=== PATIENT | female | born 1935 | race Caucasian/White ===

== ENCOUNTER 2022-08-20 09:37 | Outpatient (OUT) | payer MEDICARE, OTHER, SELFPAY ==
[2022-08-20 11:19] LABS: Anion Gap 14.9; BUN Creatinine Ratio 32.4; Calcium 9.5 mg/dL (8.5-10.1); Carbon Dioxide 26.7 mmol/L (21.0-32.0); Chloride 102 mmol/L (98-107); Estimated GFR (African America 44 (>=60); Estimated GFR (Non-African Ame 36 (>=60); Glucose 78 mg/dL (74-106); Potassium 3.6 mmol/L (3.5-5.1); Sodium 140 mmol/L (136-145)
[2022-08-20 11:22] LABS: Estimated Average Glucose 174 mg/dL; Glycohemoglobin A1C 7.7 % (4.5-6.2)
== END 2022-08-20 09:38 ==
LOC: LAB 09:43
PROVIDERS: PCP Family Medicine; Visit Provider Family Medicine
DX: E11.22 Type 2 diabetes mellitus with diabetic chronic kidney disease (principal); I12.9 Hypertensive chronic kidney disease with stage 1 through stage 4 chronic kidney disease, or unspecified chronic kidney disease; N18.32 Chronic kidney disease, stage 3b
CPT/HCPCS: 36415; 80048; 83036

== ENCOUNTER 2023-07-07 10:40 | Outpatient (OUT) | payer MEDICARE, OTHER, SELFPAY ==
--- NOTE | 2023-07-07 11:02 | XR_ITS ---
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 FINDINGS: BONES: Moderate degenerative facet arthropathy L3-L4 through L5-S1. No fracture. Minimal grade 1 anterolisthesis of L3 on 4. DISC SPACES: Marked narrowing L4-L5. Moderate marked narrowing L5-S1. Mild narrowing L3-L4. 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 OTHER: Negative. XR/XR lumbar spine 2-3V IMPRESSION: 1. Marked degenerative changes of lumbar spine. No appreciable acute abnormality. Electronically authenticated by: TRACEY GRANT Date: 07/08/2023 06:39
== END 2023-07-07 10:41 | disposition home or self-care (01) ==
LOC: RAD 10:43
PROVIDERS: PCP Family Medicine; Visit Provider Nurse Practitioner Family
DX: M53.86 Other specified dorsopathies, lumbar region (principal); M51.36 Other intervertebral disc degeneration, lumbar region
CPT/HCPCS: 72100

== ENCOUNTER 2024-12-29 12:12 | Outpatient (OUT) | payer MEDICARE, OTHER, SELFPAY ==
--- OUTSIDE RECORDS SUMMARY | 2024-12-29 12:18 | XMS_ITS | Clinical Summary ---
Author Organization [facility] Address [address] [place] [address] Care Team Providers Care Director Of Rehabilitation And Wellness Name Role Phone Unavailable Primary Care Provider Unavailabl e Social History Tobacco UseTypesPacks/DayYears UsedDateSmoking Tobacco: Never Assessed CommentsUnknownSex and Gender InformationValueDate RecordedSex Assigned at Not on fileLegal RwtDpnjwm69/15/2023 7:19 PM EDTGender IdentityNot on fileSexual OrientationNot on file Plan of Treatment Not on file
--- NOTE | 2024-12-29 12:20 | XR_ITS ---
[address] [address] Patient Name: SAMEER CASTANEDA MRN: [id number] date: 1935 Sex: F Assigned Patient Location: [facility] Current Patient Location: [facility] Accession/Order Number: [id number] Exam Date: 12/29/2024 12:30 Report Date: 12/29/2024 21:52 At the request of: LAINE SALCEDO Procedure: XR hip LT 2V w/ pelvis Single view pelvis and 2 views of the left hip INDICATION: Strain of left hip, no known injury COMPARISON: None FINDINGS: Brki-yj-ynrmksuv degenerative changes left hip. Mild to moderate degenerative changes both sacroiliac joints. No diastases of the sacroiliac joints or the pubic symphysis. Presumed pelvic phleboliths. Soft tissues unremarkable. XR/XR hip LT 2V w/ pelvis IMPRESSION: Czyt-jr-yfrhetpk degenerative change. Negative acute osseous abnormalities. Impression dictated by: Jamir Sifuentes M.D. 12/29/2024 9:52 PM Dictation Location: [place] [address] Electronically authenticated by: [id number] Y Date: 12/29/2024 21:52
--- OUTSIDE RECORDS SUMMARY | 2024-12-29 12:20 | XMS_ITS | CCD ---
Author Organization [facility] InformFormerly [facility] Care Team Providers Care Surveillance Dual Rate Officer Name Role Phone DENISSE, DR CHAD Donohue Admitting Unavailable FURLONG, DR CHAD Donohue Attending Unavailable FURLONG, DR CHAD Donohue Primary Care Unavailable FURLONG, DR CHAD Donohue Consulting Unavailable Furlong Chad JONES Primary Care Provider CHAD SOMERS Referring Unavailable FURLONG, CHAD Donohue Primary Care Unavailable FURLONG, CHAD Donohue Referring Unavailable FURLONG, CHAD Donohue Primary Care Unavailable FURLONG, CHAD Donohue Referring Unavailable FURLONG, CHAD Donohue Primary Care Unavailable Furlong Chad JONES Primary Care Provider Stacialong Chad JONES Primary Care Provider CAESARNGCHAD Attending Unavailable FURLONG, CHAD Donohue Referring Unavailable FURLONG, CHAD Donohue Primary Care Unavailable FURLONG, CHAD Donohue Attending Unavailable FURLONG, CHAD Donohue Referring Unavailable FURLONG, CHAD Donohue Primary Care Unavailable FURLONG, CHAD Donohue Attending Unavailable FURLONG, CHAD Donohue Referring Unavailable FURLONG, CHAD Donohue Primary Care Unavailable JONATHAN MACIAS Attending Unavailable FURLONG, CHAD Donohue Referring Unavailable FURLONG, CHAD Donohue Primary Care Unavailable FURLONG, CHAD Donohue Attending Unavailable FURLONG, CHAD Donohue Referring Unavailable FURLONG, CHAD Donohue Primary Care Unavailable Allergies Allergy ClassificationReported Allergen(s)Allergy TypeDate of OnsetReaction(s) Facility (20 sources)iodine povacrylex / Isopropyl Alcohol; Translations: [IODINE POVACRY-ISO ALCOHOL]Drug Ajqgrbh96-16-0224SlpswOydUpslxu [facility] (20 sources)Penicillin G; Translations: [PENICILLIN G]Drug Dcabkpq45-57-0016 [facility] Medications Current Medications MedicationDrug Class(es)DatesSig (Normalized)Sig (Original)amLODIPine 10 mg oral tablet (20 sources)Dihydropyridine Calcium Channel BlockerStart: 82-18-3676qcdp 1 tablet by mouth once dailyamLODIPine (NORVASC) 10 mg tablet Indications: Essential (primary) hypertension TAKE 1 TABLET BY MOUTH DAILY 90 tablet 1 08/09/2024 ActiveStart: 05-23-2024 End: 15-73-7273fhzb 0.5 tablet by mouth once daily in the morningamLODIPine (NORVASC) 10 mg tablet Indications: Essential (primary) hypertension Take 0.5 tablets (5mg total) by mouth every morning. 05/23/2024 08/09/2024 Discontinued Start: 03-05-2023 End: 92-45-8778khqi 1 tablet by mouth once dailyamLODIPine (NORVASC) 10 mg tablet Indications: Essential (primary) hypertension TAKE 1 TABLET BY MOUTH DAILY 30 tablet 3 04/12/2024 05/23/2024 DiscontinuedStart: 05-14-2022 End: 75-41-7184clRDXQCrdt (NORVASC) 10 mg tablet Indications: Essential (primary) hypertension 0.5 tabs once a day30 tablet 5 05/14/2022 03/05/2023 Discontinuedaspirin 81 mg delayed release oral tablet (20 sources)Platelet Aggregation Inhibitor, Nonsteroidal Anti-inflammatory Drug take 1 tablet by mouth in the morningaspirin 81 mg Take 1 tablet (81 mg total) by mouth in the morning. Activeatorvastatin 80 mg oral tablet (20 sources)HMG-CoA Reductase InhibitorStart: 04-20-2022 End: 79-09-5596qgkz 1 tablet by mouth once dailyatorvastatin (LIPITOR) 80 mg tablet Indications: Hyperlipidemia, unspecified TAKE 1 TABLET BY MOUTHDAILY 90 tablet 3 04/12/2024 Activebenazepril hydrochloride 40 mg oral tablet (20 sources)Angiotensin Converting Enzyme InhibitorStart: 05-14-2022 End: 06-68-2059qsnh 1 tablet by mouth once daily in the morningbenazepriL (LOTENSIN) 40 MG tablet Indications: 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 ([facility]) TAKE 1 TABLET BY MOUTH ONCE DAILY IN THE DTQOTDH48 tablet 5 12/01/2024 Activecalcium carbonate 1500 mg / cholecalciferol 0.01 mg oral capsule (20 sources)Vitamin Dcalcium carbonate-vitamin D3 600 mg-10 mcg (400 unit) capsule Activecalcium carbonate-vitamin D3 600 mg-10 mcg (400 unit) capsule Calcium 600 with Vitamin D3 600 mg-10mcg (400 unit) capsule Take by oral route. Activecelecoxib 200 mg oral capsule (1 source)Nonsteroidal Anti-inflammatory DrugStart: 07-06-2023 End: 93-86-0811catd 1 capsule by mouth in the morningcelecoxib (CeleBREX) 200 mg capsule Take 1 capsule (200 mg total) by mouth in the morning for 14 days. 14 capsule 07/06/2023 07/20/2023 Activedapagliflozin 10 mg oral tablet (20 sources)Sodium-Glucose Cotransporter 2 InhibitorStart: 01-06-2023 End: 93-23-8550juli 1 tablet by mouth once daily in the morningFARXIGA 10 mg tablet Indications: Type 2 diabetes mellitus with diabetic chronic kidney disease (CMS-HCC) TAKE 1 TABLET BY MOUTH ONCE DAILY IN THE MORNING 30 tablet 5 12/01/2024 Activefurosemide 40 mg oral tablet (20 sources)Loop DiureticStart: 04-11-2024 End: 57-13-4249tdbt 1 tablet by mouth once dailyfurosemide (LASIX) 40 mg tablet TAKE 1 TABLET BY MOUTH ONCE DAILY 30 tablet 5 12/01/2024 ActiveStart: 02-01-2023 End: 52-66-1255xwwy 1 tablet by mouth once daily in the morningfurosemide (LASIX) 20 mg tablet Indications: Localized edema Take 1 tablet (20 mg total) by mouth every morning. 30 tablet 5 11/11/2023 ActivehydroCHLOROthiazide 25 mg oral tablet (20 sources)Thiazide DiureticStart: 09-14-2022 End: 79-43-8275vgrx 1 tablet by mouth once dailyhydroCHLOROthiazide (HYDRODIURIL) 25 mg tablet Indications: Essential (primary) hypertension TAKE 1 TABLET BY MOUTH DAILY 30 tablet 5 09/07/2024 Active3 ml insulin glargine 100 unt/ml pen injector (20 sources)Insulin AnalogStart: 08-09-2024 End: 73-36-9405vhqdrnp glargine (LANTUS SOLOSTAR U-100 INSULIN) 100 unit/mL (3 mL) insulin pen Inject 40 Units under the skin nightly. 15 mL 3 09/28/2024 ActiveStart: 10-22-2023 End: 59-15-6344jaktncc glargine (LANTUS SOLOSTAR U-100 INSULIN) 100 unit/mL (3 mL) insulin pen Inject 26 Units under the skin nightly. 10/22/2023 08/09/2024 DiscontinuedStart: 10-21-2023 End: 46-01-7532ibrsgnm glargine (LANTUS SOLOSTAR U-100 INSULIN) 100 unit/mL (3 mL) insulin pen Inject 32 Units under the skin nightly. 10/21/2023 10/22/2023 DiscontinuedStart: 12-22-2022 End: 54-54-6544xqgypcw glargine (LANTUS SOLOSTAR U-100 INSULIN) 100 unit/mL (3 mL) insulin pen Inject 40 Units under the skin nightly. 15 mL 5 10/06/2023 10/21/2023 Discontinuedloratadine 10 mg oral tablet (9 sources)Start: 49-55-3281fvby 1 tablet by mouth once daily as needed loratadine (CLARITIN) 10 mg tablet Indications: Allergic rhinitis, unspecified seasonality, unspecified trigger Take 1 tablet (10 mg total) by mouth daily as needed for allergies. 30 tablet 2 08/18/2024 ActivemetFORMIN hydrochloride 500 mg oral tablet (20 sources)BiguanideStart: 11-12-2022 End: 75-23-0527aqpg 1 tablet by mouth once dailymetFORMIN (GLUCOPHAGE) 500 mg tablet Indications: Type 2 diabetes mellitus with diabetic chronic kidney disease ([facility]) TAKE 1 TABLET BY MOUTH DAILY 90 tablet 3 11/03/2024 Active nitrofurantoin, macrocrystals 25 mg / nitrofurantoin, monohydrate 75 mg oral capsule (1 source)Nitrofuran AntibacterialStart: 08-18-2024 End: 66-75-9050ngzn 1 capsule by mouth in the morning, then take 1 capsule by mouth at bedtimenitrofurantoin, macrocrystal-monohydrate, (MACROBID) 100 mg capsule Take 1 capsule (100 mg total) by mouth in the morning and 1 capsule (100 mg total) before bedtime. Do all this for 3 days. 6 capsule 08/18/2024 08/21/2024 Activemicroencapsulated potassium chloride 20 meq extended release oral tablet (20 sources)Start: 32-80-3335ojkn 1 tablet by mouth in the morningpotassium chloride (KLOR-CON M 20) 20 MEQ CR tablet TAKE 1 TABLET BY MOUTH IN THE MORNING 30 tablet5 12/01/2024 ActiveStart: 05-24-2024 End: 82-84-3216qfch 1 tablet by mouth in the morningpotassium chloride (KLOR-CON M 20) 20 MEQ CR tablet Take 1 tablet (20 mEq total) by mouth in the morning. 30 tablet 5 05/24/2024 12/01/2024 DiscontinuedStart: 09-03-2022 End: 61-24-0492eqyvsphsy chloride (K-TAB,KLOR-CON) 10 MEQ CR tablet Indications: Hypokalemia TAKE 1 TABLET BY MOUTH EVERY MORNING 90 tablet 1 02/08/2024 05/24/2024 Discontinued (Dose adjustment) Completed/Discontinued Medications MedicationDrug Class(es)DatesSig (Normalized)Sig (Original)atenolol 100 mg oral tablet (4 sources)beta-Adrenergic Mary Jane End: 10-84-8668pwkg 1 tablet by mouth in the morningatenolol (TENORMIN) 100 mg tablet Take 1 tablet (100 mg total) by mouth in the morning. 0 04/17/2023 Discontinued (Therapy completed)finerenone (KERENDIA) 10 mg tablet (8 sources)Start: 04-17-2023 End: 18-81-3864thfg 1 tablet by mouth in the morningfinerenone (KERENDIA) 10 mg tablet Indications: Type 2 diabetes mellitus with stage 3b chronic kidney disease, with long-term current use of insulin ([facility]) Take 10 mg by mouth in the morning. 30 tablet 5 04/17/2023 07/06/2023 Discontinued (Cost of medication) Start: 25-98-8180cexp 1 tablet by mouth in the morningfinerenone (KERENDIA) 10 mg tablet Indications: Type 2 diabetes mellitus with stage 3b chronic kidney disease, with long-term current use of insulin (CMS-HCC) Take 10 mg by mouth in the morning. 30 tablet 5 04/17/2023 ActiveStart: 05-16-2022 End: 65-78-0915yzpr 1 tablet by mouth in the morningfinerenone (KERENDIA) 10 mg tablet Indications: Type 2 diabetes mellitus with stage 3b chronic kidney disease, with long-term current use of insulin (CMS-HCC) Take 10 mg by mouth in the morning. 30 tablet 5 05/16/2022 04/17/2023 Discontinued (Reorder)Start: 00-81-2961sdim 1 tablet by mouth in the morningfinerenone (KERENDIA) 10 mg tablet Indications: Type 2 diabetes mellitus with stage 3b chronic kidney disease, with long-term current use of insulin (CMS-HCC) Take 10 mg by mouth in the morning. 30 tablet 5 05/16/2022 Active Problems Active Problems Problem ClassificationProblemDateDocumented DateEpisodic/ChronicCataract (20 sources)Cataract; Translations: [Unspecified cataract]Onset: 01-27-2022 95-70-9850SmpsbbcIwbjzvz kidney disease (20 sources)Chronic kidney disease stage 3; Translations: [Stage 3 chronic kidney disease]Onset: 474737-93-6019OdxqyccLrtgfjo kidney disease (3 sources)Chronic kidney disease; Translations: [CHRONIC KIDNEY DISEASE STAGE 3B]Onset: 38-15-6810Zawercti mellitus with complications (20 sources)Type 2 diabetes mellitus with diabetic chronic kidney disease; Translations: [Hypertension in chronic kidney disease stage 3 due to type 2 diabetes mellitus]Onset: 29-47-8057PlzoomhQavpfcgh mellitus without complication (20 sources)Type 2 diabetes mellitus; Translations: [Type 2 diabetes mellitus without complications]Onset: 404991-15-5277QnutdntNfvdsfsmz of lipid metabolism (20 sources)Mixed hyperlipidemia; Translations: [Hyperlipidemia]Onset: 663537-56-7270GoicobyClimsrdma hypertension (20 sources)Essential hypertension; Translations: [Essential (primary) hypertension]Onset: 816819-26-2449YloyfflXvbkucvpvypi with complications and secondary hypertension (20 sources)Hypertensive chronic kidney disease with stage 1 through stage 4 chronic kidney disease, or unspecified chronic kidney disease; Translations: [Chronic kidney disease due to hypertension]Onset: hronic Immunizations and screening for infectious disease (2 sources)Needs influenza immunization; Translations: [Encounter for immunization]Onset: 098361-24-8978LufobheyMyevk disorders and dislocations; trauma-related (20 sources)Derangement of meniscus; Translations: [Other meniscus derangements, unspecified meniscus, unspecified knee]Onset: hronic Osteoarthritis (20 sources)Osteoarthritis; Translations: [Unspecified osteoarthritis, unspecified site]Onset: 533927-87-6161CzgovvaJavef nutritional; endocrine; and metabolic disorders (4 sources)Overweight; Translations: [Overweight]Onset: EpisodicOther upper respiratory disease (20 sources)Seasonal allergic rhinitis; Translations: [Other seasonal allergic rhinitis]Onset: 143625-83-7289XfgnywkAwpbr upper respiratory disease (1 source)Allergic rhinitis; Translations: [Allergic rhinitis, unspecified] 95-56-5460BpnliwjYxvsdktd codes; unclassified (2 sources)Edema of foot; Translations: [Localized edema]16-55-5200Pxeyxpce Unclassified (2 sources)Strain of muscle of abt43-51-4070Pfgizyziqmre (1 source)sinus concernsOnset: 90-19-8468Fhcmifm tract infections (1 source)Urinary tract infectious disease; Translations: [Urinary tract infection, site not specified]85-11-3280Mmzamjvi Past or Other Problems Problem ClassificationProblemDateDocumented DateEpisodic/ChronicFluid and electrolyte disorders (20 sources)Hypokalemia; Translations: [Hypokalemia]Onset: EpisodicGenitourinary symptoms and ill-defined conditions (2 sources)Dysuria; Translations: [Dysuria]Onset: 733921-55-9206Mshnvqyw Malignant neoplasm without specification of site (20 sources)Malignant adenomatous neoplasm; Translations: [Malignant (primary) neoplasm, unspecified]Onset: 03-06-2008 Resolved: 355309-02-5026CajzxboCpfk disorders (20 sources)Mood disordersOnset: 10-21-2023 Resolved: Other aftercare (2 sources)alf (current) use of insulin; Translations: [MCC CURRENT USE OF INSULIN]Onset: 55-64-4040QsozxavgOysqr bone disease and musculoskeletal deformities (20 sources)Osteopenia; Translations: [Other specified disorders of bone density and structure, unspecified site]Onset: 655702-49-2851GvcxowqiXkeqe non- traumatic joint disorders (1 source)Hip painOnset: 62-35-3057DaekamymOrhua nutritional; endocrine; and metabolic disorders (20 sources)Obesity caused by energy imbalance; Translations: [Class 1 obesity due to excess calories with serious comorbidity and body mass index (BMI) of 30.0 to 30.9 in adult]Onset: 04-17-2023 Resolved: 713127-94-0394WirohzfAfqlw nutritional; endocrine; and metabolic disorders (1 source)Overweight; Translations: [Overweight]Onset: 30-25-4174Wilkodnp Regional enteritis and ulcerative colitis (20 sources)Terminal ileitis; Translations: [Crohn's disease of small intestine without complications]Onset: 01-27-2022 Resolved: 776431-80-2193XhpslsaMakvwblm codes; unclassified (20 sources)Edema; Translations: [Edema, unspecified]Onset: EpisodicResidual codes; unclassified (3 sources)Localized edema; Translations: [Localized edema]52-45-6309Afkohcqi Residual codes; unclassified (1 source)Localized edema; Translations: [Localized edema]Onset: 04-11-2024 EpisodicScreening and history of mental health and substance abuse codes (1 source)Patient encounter status; Translations: [Encounter for screening for depression]01-82-8112CbbymqhhBawubtmcolr; intervertebral disc disorders; other back problems (1 source)Sciatica; Translations: [Other specified dorsopathies, lumbar region] 11-59-3128WtpanptoOcirfcc and strains (5 sources)Strain of muscle of lower limb; Translations: [Strain of muscle of hip]Onset: 213355-94-9358OarvxousDaurvtkxwvet (20 sources)Onset: 04-17-2023 Resolved: 701427-24-0696 Results Test NameValueInterpretationReference RangeFacilityCOMPREHENSIVE METABOLIC PANEL on 49-45-9771Dcqbyyn [Mass/Vol]4.4 g/dLNormal3.2-5.3PRiverview [facility] Institute Ambulatory PPGComment on above:Performed By: #### CMP #### [facility] ([facility]) [address] [place] [address] VIRALP [Catalytic activity/Vol]118 U/TDkdsbg97-558MtdSaowom Hospital Ambulatory PPGComment on above:Performed By: #### CMP #### [facility] ([facility]) [address] [place] [address] VIRALT [Catalytic activity/Vol]20 U/LNormal<=31PRiverview Health Institute Ambulatory PPGComment on above:Performed By: #### CMP #### [facility] ([facility]) [address] [place] [address] VIRAnion gap [Moles/Vol]12 mmol/LNormal5-15[facility] Ambulatory PPGComment on above:Performed By: #### CMP #### [facility] ([facility]) [address] [place] [address] VIRAST [Catalytic activity/Vol]21 U/LNormal<=41[facility] Ambulatory PPGComment on above:Performed By: #### CMP #### [facility] ([facility]) [address] [place] [address] VIRBilirubin [Mass/Vol]0.9 mg/dLNormal0.3-1.2PRiverview Health Institute Ambulatory PPGComment on above:Performed By: #### CMP #### [facility] ([facility]) [address] [place] [address] VIRCalcium [Mass/Vol]10.1 mg/dLNormal8.5-10.5PRiverview Health Institute Ambulatory PPGComment on above:Performed By: #### CMP #### [facility] ([facility]) [address] [place] [address] VIRChloride [Moles/Vol]98 mmol/TOrfwdr11-471HnrGmhgsr Hospital Ambulatory PPGComment on above:Performed By: #### CMP #### [facility] ([facility]) [address] [place] [address] VIRCO2 [Moles/Vol]28 mmol/YTntiyx69-45UbgNzbefm Hospital Ambulatory PPGComment on above:Performed By: #### CMP #### [facility] ([facility]) [address] [place] [address] VIRCreatinine [Mass/Vol]1.51 mg/dLHigh0.40-1.00[facility] Ambulatory PPGComment on above:Result Comment: METHOD TRACEABLE TO IDMS STANDARDPerformed By: #### CMP #### [facility] ([facility]) [address] [place] [address] VIRGFR/1.73 sq M.predicted among non-blacks MDRD (S/P/Bld) [Vol rate/Area]33 mL/min/{1.73_m2}Low>=60[facility] Ambulatory PPGComment on above:Result Comment: Reported eGFR is based on the CKD-EPI 1 equation that does not use a race coefficient.Performed By: #### CMP #### [facility] ([facility]) [address] [place] [address] VIRGlucose [Mass/Vol]81 mg/zESqoijy88-40AkpFiynim Hospital Ambulatory PPGComment on above:Performed By: #### CMP #### [facility] ([facility]) [address] [place] [address] VIRPotassium [Moles/Vol]3.7 mmol/LNormal3.5-5.0[facility] Ambulatory PPGComment on above:Performed By: #### CMP #### [facility] ([facility]) [address] [place] [address] VIRProtein [Mass/Vol]7.5 g/dLNormal6.0-8.0[facility] Ambulatory PPGComment on above:Performed By: #### CMP #### [facility] ([facility]) [address] [place] [address] VIRSodium [Moles/Vol]138 mmol/EVvfzwo272-839VvxKuuoxp Hospital Ambulatory PPGComment on above:Performed By: #### CMP #### [facility] ([facility]) [address] [place] [address] VIRUrea nitrogen [Mass/Vol]63 mg/dLHigh5-27[facility] Ambulatory PPGComment on above:Performed By: #### CMP #### [facility] ([facility]) [address] [place] [address] VIRHEMOGLOBIN A1Con 82-65-4933Gkjldtk [Mass/Vol]180 mg/dLNormal [facility] Ambulatory PPGComment on above:Performed By: #### HA1C #### [facility] ([facility]) [address] [place] [address] WXZUzO4l (Bld) [Mass fraction]7.9 %High4.4-5.6[facility] Ambulatory PPGComment on above:Result Comment: ADA Guidelines Result HgbA1c Normal : less than 5.7 % Prediabetes : 5.7 % to 6.4 % Diabetes : > 6.4 % Use with caution in patients with abnormal hemoglobin variants as the half-life of red blood cells and in vivo glycation rates are affected.Performed By: #### HA1C #### [facility] ([facility]) [address] [place] [address] VIRLIPID PROFILEon 48-13-3974Fqzqriibjck [Mass/Vol]113 mg/dLLow 150-200[facility] Ambulatory PPGComment on above:Performed By: #### LIPR #### [facility] ([facility]) [address] [place] [address] VIRCholesterol in HDL [Mass/Vol]46 mg/dLNormal>39ProFirelands Regional [facility] Ambulatory PPGComment on above:Result Comment: HDL <40 mg/dL - High Risk HDL > or = 40mg/dL- Desirable HDL >60 mg/dL - Negative RiskPerformed By: #### LIPR #### [facility] ([facility]) [address] [place] [address] VIRCholesterol in LDL [Mass/Vol]50 mg/dLNormal<130[facility] Ambulatory PPGComment on above:Result Comment: LDL <100 mg/dL - Desirable LDL >160 mg/dL - High RiskPerformed By: #### LIPR #### [facility] ([facility]) [address] [place] [address] VIRCHOLESTEROL:HDL2.4Nnqvgr6.0-5.0[facility] Ambulatory PPGComment on above:Performed By: #### LIPR #### [facility] ([facility]) [address] [place] [address] VIRTriglyceride [Mass/Vol]86 mg/yCYqxkdy63-654RopQdgoqm Hospital Ambulatory PPGComment on above:Performed By: #### LIPR #### [facility] ([facility]) [address] [place] [address] VIRVERY LOW LIKDPOSKJDV10 mg/dLNormal0-30[facility] Ambulatory PPGComment on above:Performed By: #### LIPR #### [facility] ([facility]) [address] [place] [address] VIRMICROALBUMIN / CREATININE URINE RATIOon 57-85-0592Tpfcszj DL <= 20 mg/L (U) [Mass/Vol]mg/dLNormal0.0-1.9[facility] Ambulatory PPG Comment on above:Performed By: #### MALBU #### [facility] ([facility]) [address] [place] [address] VIRMALB/CREAT RATIONormalCrystal Clinic [facility] Ambulatory PPG Comment on above:Result Comment: Urine Microalbumin / Creatinine ratio not calculated due to non-numeric component.Performed By: #### MADDIE #### [facility] ([facility]) [address] [place] [address] VIRURINE CREATININE,RDM24.50 mg/dLSherman Oaks [facility] Ambulatory PPGComment on above:Performed By: #### MADDIE #### [facility] ([facility]) [address] [place] [address] VIRPOCT Hemoglobin A1con 05-17-3868XrE9v (Bld) [Mass fraction] 8.1 %Abnormal4 - 7 %[facility] OhioInterpretation and review of laboratory resultsAbWills Eye HospitalPOCT urinalysis dipstick onlyOrdered By: Iona Zelaya on 31-37-4900Eefvcdcctv (U) clearProSuburban [facility] SystemExternal Poct Urine BilirubinNegativeC[facility] SystemExternal Poct Urine BloodNegativeC[facility] SystemExternal Poct Urine ColoryellowSelect [facility] [place]External Poct Urine Glucose2+ [facility] OhioComment on above:250External Poct Urine KetonesNegative [facility] SystemExternal Poct Urine Leukocyte EsteraseTracePGreene Memorial Hospital SystemExternal Poct Urine NitriteNegativeSelect [facility] [place]External Poct Urine Qe4IurDnsnmfCleveland Clinic Luther[facility] Hospital SystemExternal Poct Urine ProteinNegative [facility] [place]External Poct Urine Specific Gravity1.01[facility] [place]External Poct Urine Urobilinogen0.2PCommunity Health SystemsBASIC METABOLIC PANLon 03-47-5537Anqxt gap [Moles/Vol]14 mmol/LNormal5-15 [facility] HospitalComment on above:Performed By: #### BMP #### [facility] ([id number]) [address], [address] [place], [place] [address]Gubfilp [Mass/Vol]10.9 mg/dLHigh8.5-10.5PMercy Health Clermont HospitalComment on above:Performed By: #### BMP #### [facility] ([id number]) [address], [address] [place], [place] [address]Nnaqodhc [Moles/Vol]93 mmol/NFpe21-049AafJvwofsCleveland Clinic Lutheran Hospital Comment on above:Performed By: #### BMP #### [facility] ([id number]) [address], [address] [place], [place] [address]OR0 [Moles/Vol]29 mmol/KXybgym90-66SvzWgwucx [facility] Comment on above:Performed By: #### BMP #### [facility] ([id number]) [address], [address] [place], [place] [address]Bogqsvkoci [Mass/Vol]1.61 mg/dLHigh0.40-1.00ProWilson [address] HospitalComment on above:Result Comment: METHOD TRACEABLE TO IDMS STANDARD Performed By: #### BMP #### [facility] ([id number]) [address], [address] [place], [place] [address]OOR/1.73 sq M.predicted among non-blacks MDRD (S/P/Bld) [Vol rate/Area]31 mL/min/{1.73_m2}Low>59Pro[address] HospitalComment on above: Result Comment: Reported eGFR is based on the CKD-EPI 1 equation that does not use a race coefficient.Performed By: #### BMP #### [facility] ([id number]) [address], [address] [place], [place] [address]Uqgpgqs [Mass/Vol]113 mg/dQAgdp06-42LktHc[address]Wilson [address] Hospital Comment on above:Performed By: #### BMP #### [facility] ([id number]) [address], [address] [place], [place] [address]Rlqkdqkry [Moles/Vol]3.3 mmol/LLow3.5-5.0Pro[address] HospitalComment on above:Performed By: #### BMP #### [facility] ([id number]) [address], [address] [place], [place] [address]Aypkhs [Moles/Vol]136 mmol/UFczfqv425-692LqfFlqrvi [place] HospitalComment on above:Performed By: #### BMP #### [facility] ([id number]) [address], [address] [place], [place] [address]Ygux nitrogen [Mass/Vol]56 mg/dLHigh5-27ProWilson [address] HospitalComment on above:Performed By: #### BMP #### [facility] ([id number]) [address] [place], [place] [address]Bowlb Metabolic Panelon 65-36-0521Gakbe gap [Moles/Vol]14 mmol/L 5 - 15 mmol/[facility] SystemCalcium [Mass/Vol]10.9 mg/dLHigh8.5 - 10.5 mg/dLCleveland Clinic Lutheran Hospital SystemChloride [Moles/Vol]93 mmol/LLow98 - 109 mmol/L [facility] SystemCO2 [Moles/Vol]29 mmol/L22 - 32 mmol/[facility] SystemCreatinine [Mass/Vol]1.61 mg/dLHigh0.40 - 1.00 mg/dLSelect Medical Specialty Hospital - Southeast OhioComment on above:METHOD TRACEABLE TO IDLA STANDARDeGFR (CKD-EPI)non-race lvdxkrsyx61Hoh[address] [place], [place] [address]Comment on above: Reported eGFR is based on the CKD-EPI 2020 equation that does not use a race coefficient. Glucose [Mass/Vol]113 mg/qMUcyk82 - 99 mg/dLSelect Medical Specialty Hospital - [facility] [place] Interpretation and review of laboratory resultsAbnormalCleveland Clinic Lutheran Hospital System Potassium [Moles/Vol]3.3 mmol/LLow3.5 - 5.0 mmol/LProMedica Health SystemSodium [Moles/Vol]136 mmol/L134 - 146 mmol/[facility] SystemUrea nitrogen [Mass/Vol]56 mg/dLHigh5 - 27 mg/dLEncompass Health Rehabilitation [facility] COMPREHENSIVE METABOLIC PANELon 56-69-0437Xnwyjyf [Mass/Vol]4.5 g/dLNormal 3.2-5.3ProMedica Rosenthal HospitalComment on above:Performed By: ###Dorian SAENZ CMP, 3016-3 #### [facility] ([id number]) [address], [address] [place], [place] [address]LQS [Catalytic activity/Vol]129 U/VFangps62-137AliZezmja Rosenthal HospitalComment on above:Performed By: ###Dorian SAENZ CMP, 6-3 #### [facility] ([id number]) [address], [address] [place], [place] [address]TBH [Catalytic activity/Vol]18 U/LNormal0-31ProMedica Rosenthal HospitalComment on above:Performed By: ###Dorian SAENZ CMP, 6-3 #### [facility] ([id number]) [address], [address] [place], [place] [address]Xdpnl gap [Moles/Vol]11 mmol/LNormal5-15ProMedica Rosenthal HospitalComment on above:Performed By: #### THONG SAENZ, 6-3 #### [facility] ([id number]) [address], [address] [place], [place] [address]CIF [Catalytic activity/Vol]22 U/LNormal0-41ProMedica Rosenthal HospitalComment on above:Performed By: ###Dorian SAENZ CMP, 6-3 #### [facility] ([id number]) [address], [address] [place], [place] [address]Zszgjgcou [Mass/Vol]1.1 mg/dLNormal0.3-1.2ProMedica Rosenthal HospitalComment on above:Performed By: #### THONG SAENZ, 6-3 #### [facility] ([id number]) [address], [address] [place], [place] [address]Pawmijl [Mass/Vol]10.3 mg/dLNormal8.5-10.5ProMedica Rosenthal HospitalComment on above:Performed By: #### THONG SAENZ, 3016-3 #### [facility] ([id number]) [address], [address] [place], [place] [address]Kgdhixes [Moles/Vol]97 mmol/TPdi50-823QbuMgyxggCleveland Clinic Lutheran Hospital Comment on above:Performed By: #### THONG SAENZ, 3016-3 #### [facility] ([id number]) [address], [address] [place], [place] [address]JB0 [Moles/Vol]29 mmol/CFutzcy30-90AvaNvoluyMercy Health Clermont Hospital Comment on above:Performed By: #### THONG SAENZ, 6-3 #### [facility] ([id number]) [address], [address] [place], [place] [address]Vyyswfdfey [Mass/Vol]1.30 mg/dLHigh0.40-1.00Pro[address] HospitalComment on above:Result Comment: METHOD TRACEABLE TO IDMS STANDARD Performed By: #### THONG SAENZ, 6-3 #### [facility] ([id number]) [address], [address] [place], [place] [address]DFZ/1.73 sq M.predicted among non-blacks MDRD (S/P/Bld) [Vol rate/Area]40 mL/min/{1.73_m2}Low>59[address] HospitalComment on above: Result Comment: Reported eGFR is based on the CKD-EPI 2020 equation that does not use a race coefficient.Performed By: #### THONG SAENZ, 3016-3 #### [facility] ([id number]) [address], [address] [place], [place] [address]Upmogzs [Mass/Vol]80 mg/zQPfhtaf96-55KhaPdqrtuCleveland Clinic Lutheran Hospital Comment on above:Performed By: #### THONG SAENZ, 3016-3 #### [facility] ([id number]) [address], [address] [place], [place] [address]Jgxawmvrn [Moles/Vol]3.9 mmol/LNormal3.5-5.0ProMccullough-Hyde [facility] HospitalComment on above:Performed By: ###Dorian SAENZ CMP, 3016-3 #### [facility] ([id number]) [address], [facility] [address] [place], [place] [address]Qwdfkhj [Mass/Vol]8.0 g/dLNormal6.0-8.0ProMccullough-Hyde [facility] Hospital Hospital Comment on above:Performed By: ###Dorian SAENZ CMP, 3016-3 #### [facility] ([id number]) [address], [facility] [address] [place], [place] [address]Uvmcom [Moles/Vol]137 mmol/CKeigqb963-933ZjmWxhpft [place] HospitalComment on above:Performed By: ###Dorian SAENZ CMP, 6-3 #### [facility] ([id number]) [address], [facility] [address] [place], [place] [address]Xtsw nitrogen [Mass/Vol]36 mg/dLHigh5-27ProM[facility]ull[facility] HospitalComment on above:Performed By: ###Dorian SAENZ CMP, 3016-3 #### [facility] ([id number]) [address], [facility] [address] [place], [place] [address]MGS A1C (GLYCO-HGB)on 44-85-5451Wgxcpmw [Mass/Vol]197 mg/dL NormalProMccullough-Hyde Memorial Hospital HospitalComment on above:Performed By: ###Dorian SAENZ CMP, 3016-3 #### [facility] ([id number]) [address], [facility] [address] [place], [place] [address]ShK7a (Bld) [Mass fraction]8.5 %High4.4-5.6ProMccull[facility] HospitalComment on above:Result Comment: NOTE ADA Guidelines Result HgbA1c Normal : less than 5.7 % Prediabetes : 5.7 % to 6.4 % Diabetes : > 6.4 % Use with caution in patients with abnormal hemoglobin variants as the half-life of red blood cells and in vivo glycation rates are affected.Performed By: #### THONG SAENZ, 3016-3 #### [facility] ([id number]) [address], [facility] [address] [place], [place] [address]FBV Qnon 32-99-4153UFG8.20 uIU/mLNormal0.49-4.67Pro[facility]apps[facility] HospitalComment on above:Performed By: #### THONG SAENZ, 3016-3 #### [facility] ([id number]) [address], [facility] [address] [place], [place] [address]ZHBEELTSNIAMD METABOLIC PANELon 97-10-4349Ohqoedq [Mass/Vol]4.2 g/dLNormal3.2-5.3Pro[facility] [place] HospitalComment on above:Performed By: #### LETTY BENITO, 32487-9 #### [facility] ([id number]) [address], [address] [place], [place] [address]DSJ [Catalytic activity/Vol]119 U/BQyjhhw27-472GlaRerwqj [place] HospitalComment on above:Performed By: #### LETTY BENITO, 57181-3 #### [facility] ([id number]) [address], [address] [place], [place] [address]KNU [Catalytic activity/Vol]20 U/LNormal0-31ProMedNationwide Children's Hospital HospitalComment on above:Performed By: #### LETTY BENITO, 07367-1 #### [facility] ([id number]) [address], [facility] [address] [place], [place] [address]Ycfur gap [Moles/Vol]13 mmol/LNormal5-15ProCleveland Clinico HospitalComment on above:Performed By: #### LETTY BENITO, 79559-7 #### [facility] ([id number]) [address], [address] [place], [place] [address]OOZ [Catalytic activity/Vol]22 U/LNormal0-41[facility] HospitalComment on above:Performed By: #### LETTY BENITO, 65819-9 #### [facility] ([id number]) [address], [address] [place], [place] [address]Gblvlvjmd [Mass/Vol]1.2 mg/dLNormal0.3-1.2Pro[facility] HospitalComment on above:Performed By: #### LETTY BENITO, 21048-0 #### [facility] ([id number]) [address], [address] [place], [place] [address]Znhghwr [Mass/Vol]10.2 mg/dLNormal8.5-10.5Pro[facility] HospitalComment on above:Performed By: #### LETTY BENITO, 18712-9 #### [facility] ([id number]) [address], [address] [place], [place] [address]Zgzcofvj [Moles/Vol]98 mmol/RQzujpt16-400IxgOfrkkb [facility]enthal HospitalComment on above:Performed By: #### LETTY BENITO, 15650-2 #### [facility] ([id number]) [address] [place], [place] [address]GK4 [Moles/Vol]27 mmol/NCxkvvw95-31TeyWqdpyn [facility] Comment on above:Performed By: #### LETTY BENITO, 68367-0 #### [facility] ([id number]) [address] [place], [place] [address]Lqtppuptws [Mass/Vol]1.17 mg/dLHigh0.40-1.00Pro[facility] HospitalComment on above:Result Comment: METHOD TRACEABLE TO IDMS STANDARD Performed By: #### LETTY BENITO, 99468-9 #### [facility] ([id number]) [address] [place], [place] [address]HEG/1.73 sq M.predicted among non-blacks MDRD (S/P/Bld) [Vol rate/Area]45 mL/min/{1.73_m2}Low>59[address] HospitalComment on above: Result Comment: Reported eGFR is based on the CKD-EPI 2020 equation that does not use a race coefficient.Performed By: #### LETTY BENITO 24553-6 #### [facility] ([id number]) [address] [address]Ldysmoh [Mass/Vol]76 mg/gGPulkas69-03DaiBtpxfu [facility] Comment on above:Performed By: #### LETTY BENITO 22643-0 #### [facility] ([id number]) [address] [address]Nvihonrns [Moles/Vol]4.3 mmol/LNormal3.5-5.0Pro[address] HospitalComment on above:Performed By: #### LETTY BENITO 92253-9 #### [facility] ([id number]) [address] [address]Fgcbfim [Mass/Vol]7.6 g/dLNormal6.0-8.0[facility] Comment on above:Performed By: #### LETTY BENITO 41930-2 #### [facility] ([id number]) [address] [address] [place], [place] [address]Hvywuw [Moles/Vol]138 mmol/UBofkdg114-096ZzfZtvhbp [place] HospitalComment on above:Performed By: #### LETTY BENITO 20360-2 #### [facility] ([id number]) [address] [address] [place], [place] [address]Sejp nitrogen [Mass/Vol]30 mg/dLHigh5-27[address] HospitalComment on above:Performed By: #### LETTY BENITO 03002-0 #### [facility] ([id number]) [address] [address]IZL A1C (GLYCO-HGB)on 36-12-9622Akkmbxq [Mass/Vol]163 mg/dL NormalProWilson Street HospitalComment on above:Performed By: #### LETTY BENITO, 63990-1 #### [facility] ([id number]) [address], [address] [address]OuN1x (Bld) [Mass fraction]7.3 %High4.4-5.6Pro[address] HospitalComment on above:Result Comment: NOTE ADA Guidelines Result HgbA1c Normal : less than 5.7 % Prediabetes : 5.7 % to 6.4 % Diabetes : > 6.4 % Use with caution in patients with abnormal hemoglobin variants as the half-life of red blood cells and in vivo glycation rates are affected.Performed By: #### LETTY BENITO, 30252-1 #### [facility] ([id number]) [address] [address]Dvfnr 1996 panelon 73-79-4739Uoaxgwovuvh [Mass/Vol]120 mg/dLLow 150-200[address] HospitalComment on above:Performed By: #### LETTY BENITO, 35115-1 #### [facility] ([id number]) [address], [address] [address]Ixjbifluunp in HDL [Mass/Vol]46 mg/dLNormal>39[address] HospitalComment on above:Result Comment: HDL <40 mg/dL - High Risk HDL > or = 40mg/dL- Desirable HDL >60 mg/dL - Negative Risk Performed By: #### LETTY BENITO, 47196-3 #### [facility] ([id number]) [address] [place], [place] [address]Ikaqfoxvhii in LDL [Mass/Vol]51 mg/dLNormal<130ProM[facility] HospitalComment on above:Result Comment: LDL <100 mg/dL - Desirable LDL >160 mg/dL - High Risk Performed By: #### LETTY BENITO, 93730-9 #### [facility] ([id number]) [address] [place], [place] [address]Bmhkuhorlzn in VLDL [Mass/Vol]23 mg/dLNormal0-30ProM[facility]ull[facility] HospitalComment on above:Performed By: #### LETTY BENITO, 36833-3 #### [facility] ([id number]) [address], [facility] [address] [place], [place] [address]XSSYTDPREXE:HDL2.3Oglpne9.0-5.0ProMccull[facility] HospitalComment on above:Performed By: #### LETTY BENITO, 82176-9 #### [facility] ([id number]) [address], [address] [address]Rzrrkeosnecq [Mass/Vol]116 mg/pEMkaboy58-644FshZsgwut [place] HospitalComment on above:Performed By: #### LETTY BENITO, 49815-7 #### [facility] ([id number]) [address] [address]XGMTDGWGXQRN - ALBUMIN:CREATININE URINE RATIOon 10-21-2023 ALB/CREAT RATIONOT CALCULATEDNormal0.0-30.0Pro[facility] HospitalComment on above:Result Comment: Result for Albumin/Creatinine Ratio cannot be reliably calculated because urine albumin and or urine creatinine is below the detection limit of the assay.Performed By: #### MALBU #### [facility] ([id number]) [address] [place] [address], [address] [place], [place] [address]Ojuyhdk DL <= 20 mg/L (U) [Mass/Vol]mg/dLNormal0.0-1.9[address] HospitalComment on above:Performed By: #### MALBU #### [facility] ([id number]) [address] [place] [address], [address] [place], [place] [address]AISEC CREAT14.76 mg/dLNormalProMccullough-Hyde [facility] HospitalComment on above:Performed By: #### MALBU #### [facility] ([id number]) [address] [place] [address], [address] [place], [place] [address]XVO INTACTon 69-81-4468UOQ, Kohaht61 pg/iMWrfkyn90-13Lsj [facility] CenterComment on above:Performed By: #### PTHINT #### [facility] [address] [place] [address] Dr. Letha Engle AUTO DIFFon 04-14-6126JEOC #0.0 103/ulNormal0.0-0.1[facility] HospitalComment on above:Performed By: #### CBC #### [facility] [address] [place] [address] Dr. Letha JayBasophils/100 WBC (Bld)0.6 %Normal0.2-2.0[facility] Comment on above:Performed By: #### CBC #### [facility] [address] [place] [address] Dr. Letha Jacome #0.1 103/ulNormal0.0-0.7The [facility] Medical CenterComment on above: Performed By: #### CBC #### [facility] [address] [place] [address] Dr. Letha Nuñezosinophils/100 WBC (Bld)0.9 %Normal0.9-7.0[facility] Comment on above:Performed By: #### CBC #### [facility] [address] [place] [address] Dr. Letha Nuñezrythrocyte distribution width (RBC) [Ratio]13.2 %Jkbmnr24.0-15.0 [facility] HospitalComment on above:Performed By: #### CBC #### [facility] [address] [place] [address] Dr. Letha JayHematocrit (Bld) [Volume fraction]35.0 %Critically low36.0-48.0 [facility] Hospitalment on above:Performed By: #### CBC #### [facility] [address] [place] [address] Dr. Letha JayHemoglobin (Bld) [Mass/Vol]11.9 g/dLCritically low12.0-16.0[facility] Hospitalment on above:Performed By: #### CBC #### [facility] [address] [place] [address] Dr. Letha Beal #0.03 10e3/ulNormal0.00-0.03[facility] Hospitalment on above:Performed By: #### CBC #### [facility] [address] [place] [address] Dr. Letha Beal %0.4 %Normal0.0-0.5The [facility] Hospitalment on above: Performed By: #### CBC #### [facility] [address] [place] [address] Dr. Letha Jackson #1.3 103/ulNormal1.2-3.8The [facility] CenterComment on above:Performed By: #### CBC #### [facility] [address] [place] [address] Dr. Letha Sandovalmphocytes/100 WBC (Bld)18.1 %Critically low20.5-60.0[facility] Hospitalment on above:Performed By: #### CBC #### [facility] [address] [place] [address] Dr. Letha MortonUAL DIFF REQNONormalThe [facility] Medical CenterComment on above: Performed By: #### CBC #### [facility] [address] [address] [address] Letha Cohen (RBC) [Entitic mass]30.1 xvVtynhy93.7-34.0The [facility] Medical CenterComment on above:Performed By: #### CBC #### [facility] [address] [place] [address] Dr. Letha Cohen (RBC) [Mass/Vol]34.0 g/zFWtuoqx05.9-35.2The [facility] CenterComment on above:Performed By: #### CBC #### [facility] [address] [place] [address] Dr. Letha Abraham (RBC) [Entitic vol]88.4 yKXzmbcj43.0-99.0The [facility] CenterComment on above:Performed By: #### CBC #### [facility] [address] [place] [address] Dr. Letha Gonzalez #0.5 103/ulNormal0.3-0.8The [facility] Medical CenterComment on above:Performed By: #### CBC #### [facility] [address] [place] [address] Dr. Letha Gironocytes/100 WBC (Bld)7.7 %Normal1.7-12.0The [facility] on above:Performed By: #### CBC #### [facility] [address] [place] [address] Dr. Letha Clark #5.1 103/ulNormal1.4-6.5The [facility] Medical CenterComment on above:Performed By: #### CBC #### [facility] [address] [place] [address] Dr. Letha Powellutrophils/100 WBC (Bld)72.3 %Enluph94.0-75.0The [facility] Medical CenterComment on above:Performed By: #### CBC #### [facility] [address] [place] [address] Dr. Letha Myerslet mean volume (Bld) [Entitic vol]9.6 fLNormal9.5-13.5The [facility] Medical CenterComment on above:Performed By: #### CBC #### [facility] [address] [place] [address] Dr. Letha JayPLT302 103/vrYrmzcd296-921Bjy [facility] CenterComment on above: Performed By: #### CBC #### [facility] [address] [place] [address] Dr. Letha JayRBC3.96 106/ulCritically low4.20-5.40The [facility] Medical CenterComment on above:Performed By: #### CBC #### [facility] [address] [place] [address] Dr. Letha JayWBC7.0 103/ulNormal4.0-11.0The [facility] CenterComment on above: Performed By: #### CBC #### [facility] [address] [place] [address] Dr. Letha JayGLYCOHEMOGLOBIN A1Con 15-04-2335RWE RECOMMENDATIONSEE BELOWFostoria City HospitalCombronson battle [facility] on above:Result Comment: ADA RECOMMENDED LIMIT 4.0 - 6.0 ADA THERAPEUTIC TARGET < 7.0 ACTION SUGGESTED > 7.0Performed By: #### A1C #### [facility] [address] [place] [address] Dr. Letha JayGlucose [Mass/Vol]200 mg/dLNoSheltering Arms HospitalCombronson battle creek hospital on above:Performed By: #### A1C #### [facility] [address] [place] [address] Dr. Letha JayHbA1c (Bld) [Mass fraction]8.6 %Critically high4.5-6.2The [facility] Medical CenterCombronson battle creek hospital on above:Performed By: #### A1C #### [facility] [address] [place] [address] Dr. Letha JayLIPID PROFILEon 41-41-1040BYRI-HDL RATIO NORMSEE [facility] HospitalCombr[facility] on above:Result Comment: 3.3 - 4.4 LOW RISK 4.4 - 7.1 AVERAGE RISK 7.1 - 11.0 MODERATE RISK >11.0 HIGH RISKPerformed By: #### MG, PHOS, LIPID, URIC, CMP #### [facility] [address] [place] [address] Dr. Letha JayCholesterol [Mass/Vol]144 mg/dLNormal<=200The [facility] Comment on above:Performed By: #### MG, PHOS, LIPID, URIC, CMP #### [facility] [address] [place] [address] Dr. Letha JayCholesterol in HDL [Mass/Vol]53 mg/rYXqcxfy80-26Eex [facility] CenterComment on above:Performed By: #### MG, PHOS, LIPID, URIC, CMP #### [facility] [address] [place] [address] Dr. Letha JayCholesterol in LDL [Mass/Vol]65.4 mg/dLNoSheltering Arms HospitalComment on above:Performed By: #### MG, PHOS, LIPID, URIC, CMP #### [facility] [address] [place] [address] Dr. Letha Reese.total/Cholesterol in HDL [Mass ratio]2.7 {ratio} NormalThe [facility] Medical CenterComment on above:Performed By: #### MG, PHOS, LIPID, URIC, CMP #### [facility] [address] [place] [address] Dr. Letha Ng NORMAL> or = 60 mg/dl - LOW CARDIOVASCULAR RISK <40 mg/dl - HIGH CARDIOVASCULAR RISKAdena Health SystemComment on above:Performed By: #### MG, PHOS, LIPID, URIC, CMP #### [facility] [address] [place] [address] Dr. Letha JayLDL CALC NORMALSEE BELOWAdena Health SystemComment on above:Result Comment: <100 mg/dl OPTIMAL 100 - 129 mg/dl NEAR OR ABOVE OPTIMAL 130 - 159 mg/dl BORDERLINE HIGH 160 - 189 mg/dl HIGH >190 mg/dl VERY HIGH Performed By: #### MG, PHOS, LIPID, URIC, CMP #### [facility] [address] [address] [address] Letha JayTriglyceride [Mass/Vol]128 mg/dLNormal<=150[facility] Comment on above:Performed By: #### MG, PHOS, LIPID, URIC, CMP #### [facility] [address] [address] [address] Letha JayVLDL CALC25.6 mg/dLNormalThe [facility]ore Medical CenterComment on above: Performed By: #### MG, PHOS, LIPID, URIC, CMP #### [facility] [address] [address] [address] Letha JayMAGNESIUMon [id number] [Mass/Vol]1.9 mg/dLNormal1.8-2.4 The [facility] CenterComment on above:Performed By: #### MG, PHOS, LIPID, URIC, CMP #### [facility] [address] [place] [address] Dr. Letha JayPHOSPHORUSon [id number] [Mass/Vol]3.9 mg/dLNormal2.6-4.7 The [facility] CenterComment on above:Performed By: #### MG, PHOS, LIPID, URIC, CMP #### [facility] [address] [place] [address] Dr. Letha JayPROF 14(COMP METB)on [phone] [Mass/Vol]3.8 g/dLNormal 3.4-5.0The [facility] CenterComment on above:Performed By: #### MG, PHOS, LIPID, URIC, CMP #### [facility] [address] [address] [address] Letha JayAlbumin/Globulin [Mass ratio]1.1 {ratio}NormalThe [facility]camore Medical CenterComment on above:Performed By: #### MG, PHOS, LIPID, URIC, CMP #### [facility] [address] [place] [address] Dr. Letha SloanP [Catalytic activity/Vol]142 U/LCritically ijqh87-682Heg [facility] CenterComment on above:Performed By: #### MG, PHOS, LIPID, URIC, CMP #### [facility] [address] [place] [address] Dr. Letha Schaffer [Catalytic activity/Vol]22 U/HLsxwvn78-53OlnGreene Memorial HospitalComment on above:Performed By: #### MG, PHOS, LIPID, URIC, CMP #### [facility] [address] [place] [address] Dr. Letha Rogelon gap [Moles/Vol]10.6 mmol/LNormalGreene Memorial Hospital Comment on above:Performed By: #### MG, PHOS, LIPID, URIC, CMP #### [facility] [address] [place] [address] Dr. Letha Crespo [Catalytic activity/Vol]17 U/DLxxkoa38-49TqbGreene Memorial HospitalComment on above:Performed By: #### MG, PHOS, LIPID, URIC, CMP #### [facility] [address] [place] [address] Dr. Letha JayBilirubin [Mass/Vol]0.8 mg/dLNormal0.2-1.0[facility] Comment on above:Performed By: #### MG, PHOS, LIPID, URIC, CMP #### [facility] [address] [place] [address] Dr. Letha JayCalcium [Mass/Vol]9.2 mg/dLNormal8.5-10.1[facility] Comment on above:Performed By: #### MG, PHOS, LIPID, URIC, CMP #### [facility] [address] [place] [address] Dr. Letha JayChloride [Moles/Vol]100 mmol/OBjcgco75-603CzzGreene Memorial Hospital Comment on above:Performed By: #### MG, PHOS, LIPID, URIC, CMP #### [facility] [address] [place] [address] Dr. Letha JayCO2 [Moles/Vol]30.9 mmol/HTmznrq35.0-32.0[facility] Comment on above:Performed By: #### MG, PHOS, LIPID, URIC, CMP #### [facility] [address] [address] [address] Letha JayCreatinine [Mass/Vol]1.22 mg/dLCritically high0.55-1.02Greene Memorial HospitalComment on above:Performed By: #### MG, PHOS, LIPID, URIC, CMP #### [facility] [address] [address] [address] Monae ChangEGFR-AF TAHHIQPN92 mL/min/1.70f5Ykbgkjjmvo low>=60The [facility] CenterComment on above:Performed By: #### MG, PHOS, LIPID, URIC, CMP #### [facility] [address] [place] [address] Dr. Letha NuñezGFR-NON AF XHJKEYXW28 mL/min/1.36y2Ihgcsgswfc low>=60The [facility] CenterComment on above:Performed By: #### MG, PHOS, LIPID, URIC, CMP #### [facility] [address] [place] [address] Dr. Letha JayGlobulin (S) [Mass/Vol]3.6 g/dLNormalThe [facility] Medical CenterComment on above:Performed By: #### MG, PHOS, LIPID, URIC, CMP #### [facility] [address] [place] [address] Dr. Letha JayGlucose [Mass/Vol]89 mg/oKVtaomv66-929GkjGreene Memorial Hospital Comment on above:Performed By: #### MG, PHOS, LIPID, URIC, CMP #### [facility] [address] [place] [address] Dr. Letha JayPotassium [Moles/Vol]3.5 mmol/LNormal3.5-5.1[facility] Comment on above:Performed By: #### MG, PHOS, LIPID, URIC, CMP #### [facility] [address] [place] [address] Dr. Letha JayProtein [Mass/Vol]7.4 g/dLNormal6.4-8.2[facility] Comment on above:Performed By: #### MG, PHOS, LIPID, URIC, CMP #### [facility] [address] [place] [address] Dr. Letha Trevizodium [Moles/Vol]138 mmol/VJrazkc117-565Mzb [facility] Comment on above:Performed By: #### MG, PHOS, LIPID, URIC, CMP #### [facility] [address] [place] [address] Dr. Letha JayUrea nitrogen [Mass/Vol]27.0 mg/dLCritically high7.0-18.0The [facility] Medical CenterComment on above:Performed By: #### MG, PHOS, LIPID, URIC, CMP #### [facility] [address] [place] [address] Dr. Letha Gaspar nitrogen/Creatinine [Mass ratio]22.1 mg/mgNoSheltering Arms HospitalComment on above:Performed By: #### MG, PHOS, LIPID, URIC, CMP #### [facility] [address] [place] [address] Dr. Letha JayURIC ACID SERUMon [id number] [Mass/Vol]8.4 mg/dLCritically high2.6-6.0The [facility] CenterComment on above:Performed By: #### MG, PHOS, LIPID, URIC, CMP #### [facility] [address] [place] [address] Dr. Letha JayVITAMIN D 25 OHon [id number] D 25-OH64.2 ng/mLNormalThe [facility] Medical CenterComment on above:Performed By: #### VITAD #### [facility] [address] [place] [address] Dr. Letha GAYTANSaba BELOWAdena Health SystemComment on above: Result Comment: <20 ng/mL Vit D deficient 20 - <30 ng/mL Vit D insufficient 30 - 100 ng/mL Vit D sufficient >100 ng/mL Potential ToxicityPerformed By: #### VITAD #### [facility] [address] [place] [address] Dr. Letha Santacruz METABOLIC PANELon 93-13-4769Tiyzgcr [Mass/Vol]10.2 mg/dL Normal8.6-10.4Quest DiagnosticsComment on above:Order Comment: FASTING:YES FASTING: YESPerformed By: #### [id number] #### [facility] [address], [address] [place] [address] Pad Tufter: Vishnu Saldaña MDChloride [Moles/Vol]99 mmol/MKxgujs07-263Telib DiagnosticsComment on above:Order Comment: FASTING:YES FASTING: YESPerformed By: #### [id number] #### [facility] [place] [address] Pad Tufter: Vishnu Saldaña MDCO2 [Moles/Vol]31 mmol/ITcuntu89-33Wtlyu DiagnosticsComment on above:Order Comment: FASTING:YES FASTING: YESPerformed By: #### [id number] #### [facility] [place] [address] Pad Tufter: Vishnu PEREZreatinine [Mass/Vol]1.33 mg/dLHigh0.60-0.88 Quest DiagnosticsComment on above:Order Comment: FASTING:YES FASTING: YESResult Comment: For patients >49 years of age, the reference limit for Creatinine is approximately 13% higher for people identified as -Turkish.Performed By: #### [id number] #### [facility] [place] [address] Pad Tufter: Vishnu Saldaña MDeGFR NON-AFR. NGYKQRLL34 mL/min/1.18b3Kvf> OR = 60Quest DiagnosticsComment on above:Order Comment: FASTING:YES FASTING: YESPerformed By: #### [id number] #### [facility] [place] [address] Pad Tufter: Vishnu Saldaña MDGFR/1.73 sq M.predicted among blacks MDRD (S/P/Bld) [Vol rate/Area]42 mL/min/{1.73_m2}Low> OR = 60Quest DiagnosticsComment on above:Order Comment: FASTING:YES FASTING: YESPerformed By: #### [id number] #### [facility] [place] [address] Pad Tufter: Vishnu Saldaña MDGlucose [Mass/Vol]86 mg/oWZtgvgh67-31Oqaea DiagnosticsComment on above:Order Comment: FASTING:YES FASTING: YESResult Comment: Fasting reference intervalPerformed By: #### [id number] #### [facility] [address], [address] [place] [address] Pad Tufter: Vishnu Saldaña MDPotassium [Moles/Vol]3.6 mmol/LNormal3.5-5.3 Quest DiagnosticsComment on above:Order Comment: FASTING:YES FASTING: YESPerformed By: #### 71315 #### [facility] [place] [address] Pad Tufter: Vishnu Saldaña MDSodium [Moles/Vol]140 mmol/OIhyxkp180-397Wekvl DiagnosticsComment on above:Order Comment: FASTING:YES FASTING: YESPerformed By: #### [id number] #### [facility] [place] [address] Pad Tufter: Vishnu Saldaña MDUrea nitrogen [Mass/Vol]28 mg/dLHigh7-25Quest DiagnosticsComment on above:Order Comment: FASTING:YES FASTING: YESPerformed By: #### [id number] #### [facility] [place] [address] Pad Tufter: Vishnu Saldaña MDUrea nitrogen/Creatinine [Mass ratio]21 mg/mg Normal6-22Quest DiagnosticsComment on above:Order Comment: FASTING:YES FASTING: YESPerformed By: #### 11561 #### [facility] [place] [address] Pad Tufter: Vishnu Saldaña MDCBC (INCLUDES DIFF/PLT)on 34-50-9511Pgxkwpccp (Bld) [#/Vol]0.027 10*3/uLNormal0-200Quest DiagnosticsComment on above:Performed By: #### 905, 718, 33839, 7600, 11942, 29377, 622, 6399 #### [facility] of [address], [address] [place] [address] Pad Tufter: Vishnu Saldaña MDBasophils/100 WBC (Bld)0.4 %NormalQuest DiagnosticsComment on above:Performed By: #### 905, 718, 10125, 7600, 93256, 13483, 622, 6399 #### [facility] [place] [address] Pad Tufter: Vishnu Saldaña MDEosinophils (Bld) [#/Vol]0.088 10*3/uLNormal 15-500Quest DiagnosticsComment on above:Performed By: #### 905, 718, 12272, 7600, 68190, 72517, 622, 6399 #### [facility] [address], [address] [place] [address] Pad Tufter: Vishnu Saldaña MDEosinophils/100 WBC (Bld)1.3 %NormalQuest DiagnosticsComment on above:Performed By: #### 905, 718, 23846, 7600, 22176, 34134, 622, 6399 #### [facility] [place] [address] Pad Tufter: Vishnu Saldaña MDErythrocyte distribution width (RBC) [Ratio] 13.1 %Wzquef92.0-15.0Quest DiagnosticsComment on above:Performed By: #### 905, 718, 63787, 7600, 08340, 90099, 622, 6399 #### [facility] [place] [address] Pad Tufter: Vishnu Saldaña MDHematocrit (Bld) [Volume fraction]38.2 %Normal 35.0-45.0Quest DiagnosticsComment on above:Performed By: #### 905, 718, 66303, 7600, 00597, 86302, 622, 6399 #### [facility] of [place] [address] Pad Tufter: Vishnu Saldaña MDHemoglobin (Bld) [Mass/Vol]12.4 g/dLNormal 11.7-15.5Quest DiagnosticsComment on above:Performed By: #### 905, 718, 31627, 7600, 02381, 37245, 622, 6399 #### [facility] [place] [address] Pad Tufter: Vishnu Saldaña MDLymphocytes (Bld) [#/Vol]1.176 10*3/uLNormal 850-3900Quest DiagnosticsComment on above:Performed By: #### 905, 718, 67615, 7600, 84805, 42840, 622, 6399 #### [facility] of [address] [place] [address] Pad Tufter: Vishnu Saldaña MDLymphocytes/100 WBC (Bld)17.3 %NormalQuest DiagnosticsComment on above:Performed By: #### 905, 718, 64846, 7600, 34020, 97121, 622, 6399 #### [facility] of [place] [address] Pad Tufter: Vishnu Saldaña MDMCH (RBC) [Entitic mass]29.3 tdKfckfu75.0-33.0 Quest DiagnosticsComment on above:Performed By: #### 905, 718, 29522, 7600, 84632, 07355, 622, 6399 #### [facility] of [address] [place] [address] Pad Tufter: Vishnu Saldaña MDMCHC (RBC) [Mass/Vol]32.5 g/wJSddknn13.0-36.0 Quest DiagnosticsComment on above:Performed By: #### 905, 718, 72965, 7600, 90066, 28405, 622, 6399 #### [facility] of [address] [place] [address] Pad Tufter: Vishnu Saldaña MDMCV (RBC) [Entitic vol]90.3 qVJrpjij18.0-100.0 Quest DiagnosticsComment on above:Performed By: #### 905, 718, 21457, 7600, 37314, 15462, 622, 6399 #### [facility] of [address] [place] [address] Pad Tufter: Vishnu Saldaña MDMonocytes (Bld) [#/Vol]0.564 10*3/uLNormal 200-950Quest DiagnosticsComment on above:Performed By: #### 905, 718, 26783, 7600, 14427, 05680, 622, 6399 #### [facility] of [address] [place] [address] [place] , [address] [place] [address] Pad Tufter: Vishnu Saldaña MDMonocytes/100 WBC (Bld)8.3 %NormalQuest DiagnosticsComment on above:Performed By: #### 905, 718, 84001, 7600, 91516, 65237, 622, 6399 #### [facility] [place] [address] [place] [address] [place] [address] Pad Tufter: Vishnu Saldaña MDNeutrophils (Bld) [#/Vol]4.944 10*3/uLNormal 1500-7800Quest DiagnosticsComment on above:Performed By: #### 905, 718, 22285, 7600, 75942, 63941, 622, 6399 #### [facility] of [address] [place] [address] [place] , [address] [place] [address] Pad Tufter: Vishnu Saldaña MDNeutrophils/100 WBC (Bld)72.7 %NormalQuest DiagnosticsComment on above:Performed By: #### 905, 718, 78989, 7600, 67534, 31499, 622, 6399 #### [facility] of [address], [address] [place] [address] Pad Tufter: Vishnu Saldaña MDPlaterobbin mean volume (Bld) [Entitic vol]11.7 fLNormal7.5-12.5Quest DiagnosticsComment on above:Performed By: #### 905, 718, 59631, 7600, 82044, 31682, 622, 6399 #### [facility] of [address], [address] [place] [address] Pad Tufter: Vishnu Saldaña MDPlatelets (Bld) [#/Vol]271 10*3/uLNormal 140-400Quest DiagnosticsComment on above:Performed By: #### 905, 718, 91939, 7600, 68356, 31462, 622, 6399 #### [facility] of [address], [address] [place] [address] Pad Tufter: Vishnu Saldaña MDRBC (Bld) [#/Vol]4.23 10*6/uLNormal3.80-5.10 Quest DiagnosticsComment on above:Performed By: #### 905, 718, 57231, 7600, 11448, 03942, 622, 6399 #### [facility] of [address], [address] [place] [address] Pad Tufter: Vishnu Saldaña MDWBC (Bld) [#/Vol]6.8 10*3/uLNormal3.8-10.8 Quest DiagnosticsComment on above:Performed By: #### 905, 718, 29910, 7600, 80502, 05149, 622, 6399 #### [facility] of [address], [address] [place] [address] Pad Tufter: Vishnu Saldaña MDCOMPREHENSIVE METABOLIC PANELon 08-23-2020 Albumin [Mass/Vol]4.4 g/dLNormal3.6-5.1Quest DiagnosticsComment on above: Performed By: #### 905, 718, 64421, 7600, 92641, 56330, 622, 6399 #### [facility] of [place] [address] Pad Tufter: Vishnu Saldaña MDAlbumin/Globulin [Mass ratio]1.7 {ratio}Normal 1.0-2.5Quest DiagnosticsComment on above:Performed By: #### 905, 718, 48117, 7600, 37554, 56248, 622, 6399 #### [facility] of [place] [address] Pad Tufter: Vishnu Saldaña MDALP [Catalytic activity/Vol]136 U/LNormal 37-153Quest DiagnosticsComment on above:Performed By: #### 905, 718, 90306, 7600, 70583, 98533, 622, 6399 #### [facility] of [place] [address] Pad Tufter: Vishnu Saldaña MDALT [Catalytic activity/Vol]17 U/LNormal6-29 Quest DiagnosticsComment on above:Performed By: #### 905, 718, 71767, 7600, 00470, 57792, 622, 6399 #### [facility] of [place] [address] Pad Tufter: Vishnu Saldaña MDAST [Catalytic activity/Vol]20 U/LPqvoaz99-02 Quest DiagnosticsComment on above:Performed By: #### 905, 718, 43750, 7600, 72982, 27949, 622, 6399 #### [facility] of [place] [address] Pad Tufter: Vishnu Saldaña MDBilirubin [Mass/Vol]1.2 mg/dLNormal0.2-1.2 Quest DiagnosticsComment on above:Performed By: #### 905, 718, 70610, 7600, 79842, 07886, 622, 6399 #### [facility] of [address], [address] [place] [address] Pad Tufter: Vishnu Saldaña MDCalcium [Mass/Vol]9.9 mg/dLNormal8.6-10.4Quest DiagnosticsComment on above:Performed By: #### 905, 718, 69457, 7600, 66722, 11050, 622, 6399 #### [facility] [address], [address] [place] [address] Pad Tufter: Vishnu Saldaña MDChloride [Moles/Vol]102 mmol/FMinzex38-851 Quest DiagnosticsComment on above:Performed By: #### 905, 718, 43198, 7600, 00849, 26900, 622, 6399 #### [facility] [address], [address] [place] [address] Pad Tufter: Vishnu Saldaña MDCO2 [Moles/Vol]27 mmol/UPmijrj59-43Jzlre DiagnosticsComment on above:Performed By: #### 905, 718, 55721, 7600, 27349, 33135, 622, 6399 #### [facility] [place] [address] Pad Tufter: Vishnu PEREZreatinine [Mass/Vol]1.09 mg/dLHigh0.60-0.88 Quest DiagnosticsComment on above:Result Comment: For patients >49 years of age, the reference limit for Creatinine is approximately 13% higher for people identified as -Turkish.Performed By: #### 905, 718, 17750, 7600, 71561, 10305, 622, 6399 #### [facility] of [place] [address] Pad Tufter: Vishnu Saldaña MDeGFR NON-AFR. DPWBHRHS29 mL/min/1.43p0Pmm> OR = 60Quest DiagnosticsComment on above:Performed By: #### 905, 718, 28146, 7600, 72809, 72359, 622, 6399 #### [facility] [address], [address] [place] [address] Pad Tufter: Vishnu Saldaña MDGFR/1.73 sq M.predicted among blacks MDRD (S/P/Bld) [Vol rate/Area]54 mL/min/{1.73_m2}Low> OR = 60Quest DiagnosticsComment on above:Performed By: #### 905, 718, 79665, 7600, 22190, 24861, 622, 6399 #### [facility] [address], [address] [place] [address] Pad Tufter: Vishnu Saldaña MDGlobulin (S) [Mass/Vol]2.6 g/dLNormal1.9-3.7 Quest DiagnosticsComment on above:Performed By: #### 905, 718, 44127, 7600, 81861, 46082, 622, 6399 #### [facility] [address], [address] [place] [address] Pad Tufter: Vishnu Saldaña MDGlucose [Mass/Vol]124 mg/yWPcwg00-42Cseqo DiagnosticsComment on above:Result Comment: Fasting reference interval For someone without known diabetes, a glucose value between 100 and 125 mg/dL is consistent with prediabetes and should be confirmed with a follow-up test.Performed By: #### 905, 718, 41068, 7600, 62701, 33484, 622, 6399 #### [facility] [address], [address] [place] [address] Pad Tufter: Vishnu Saldaña MDPotassium [Moles/Vol]4.4 mmol/LNormal3.5-5.3 Quest DiagnosticsComment on above:Performed By: #### 905, 718, 01347, 7600, 17115, 04902, 622, 6399 #### [facility] [address], [address] [place] [address] Pad Tufter: Vishnu Saldaña MDProtein [Mass/Vol]7.0 g/dLNormal6.1-8.1Quest DiagnosticsComment on above:Performed By: #### 905, 718, 69464, 7600, 85213, 83432, 622, 6399 #### [facility] of [address], [address] [place] [address] Pad Tufter: Vishnu RODRIGUEZodium [Moles/Vol]142 mmol/KJtpiew697-237Ihvda DiagnosticsComment on above:Performed By: #### 905, 718, 04951, 7600, 82364, 66692, 622, 6399 #### [facility] [address], [address] [place] [address] Pad Tufter: Vishnu Saldaña MDUrea nitrogen [Mass/Vol]27 mg/dLHigh7-25Quest DiagnosticsComment on above:Performed By: #### 905, 718, 51918, 7600, 26273, 71432, 622, 6399 #### [facility] of [address], [address] [place] [address] Pad Tufter: Vishnu Saldaña MDUrea nitrogen/Creatinine [Mass ratio]25 mg/mg High6-22Quest DiagnosticsComment on above:Performed By: #### 905, 718, 35249, 7600, 38240, 87113, 622, 6399 #### [facility] [place] [address] Pad Tufter: Vishnu Saldaña MDLIPID PANEL, STANDARD 44-44-1381Bnfpntnuigm [Mass/Vol]138 mg/dLNormal<200Quest DiagnosticsComment on above:Order Comment: FASTING:YES FASTING: YESPerformed By: #### 905, 718, 14255, 7600, 62460, 95826, 622, 6399 #### [facility] of [place] [address] Pad Tufter: Vishnu Saldaña MDCholesterol in HDL [Mass/Vol]43 mg/dLLow> OR = 50Quest DiagnosticsComment on above:Order Comment: FASTING:YES FASTING: YESPerformed By: #### 905, 718, 47804, 7600, 34402, 77128, 622, 6399 #### [facility] [address], [address] [place] [address] Pad Tufter: Vishnu PEREZholesterol in LDL [Mass/Vol]73 mg/dLNormal Quest DiagnosticsComment on above:Order Comment: FASTING:YES FASTING: YESResult Comment: Reference range: <100 Desirable range <100 mg/dL for primary prevention; <70 mg/dL for patients with CHD or diabetic patients with > or = 2 CHD risk factors. LDL-C is now calculated using the Heriberto calculation, which is a validated novel method providing better accuracy than the Friedewald equation in the estimation of LDL-C. Darrius PAULSON et al. JORJE. 2013;310(19): 5845-4932 (http://education.Ingogo.Mohound/faq/XJL593)Performed By: #### 905, 718, 57832, 7600, 95952, 98344, 622, 6399 #### [facility] [address], [address] [place] [address] Pad Tufter: Vishnu PEREZholestwero.total/Cholesterol in HDL [Mass ratio]3.2 {ratio}Normal<5.0Quest DiagnosticsComment on above:Order Comment: FASTING:YES FASTING: YESPerformed By: #### 905, 718, 54586, 7600, 06669, 50126, 622, 6399 #### [facility] [address], [address] [place] [address] Pad Tufter: Vishnu VINCENT HDL ZQBKXOQUJZM05 mg/dL (calc)Normal<130 Quest DiagnosticsComment on above:Order Comment: FASTING:YES FASTING: YESResult Comment: For patients with diabetes plus 1 major ASCVD risk factor, treating to a non-HDL-C goal of <100 mg/dL (LDL-C of <70 mg/dL) is considered a therapeutic option.Performed By: #### 905, 718, 33482, 7600, 45368, 53858, 622, 6399 #### [facility] [place] [address] Pad Tufter: Vishnu Saldaña MDTriglyceride [Mass/Vol]137 mg/dLNormal<150 [facility] DiagnosticsComment on above:Order Comment: FASTING:YES FASTING: YESPerformed By: #### 905, 718, 11384, 7600, 24364, 23917, 622, 6399 #### [facility] [place] [address] Pad Tufter: Vishnu Saldaña MDMAGNESIUMon 64-64-6503Kidoaucbm [Mass/Vol]1.5 mg/dLNormal1.5-2.5Quest DiagnosticsComment on above:Performed By: #### 905, 718, 86647, 7600, 60869, 59823, 622, 6399 #### [facility] [place] [address] Pad Tufter: Vishnu GONZALEZHOSPHATE ( PHOSPHORUS)on 08-23-2020 Phosphate [Mass/Vol]3.9 mg/dLNormal2.1-4.3Quest DiagnosticsComment on above: Performed By: #### 905, 718, 39268, 7600, 21680, 26392, 622, 6399 #### [facility] [place] [address] Pad Tufter: Vishnu Saldaña MDPTH, INTACT WITHOUT CALCIUMon 08-23-2020 PARATHYROID HORMONE, TEFWZP38 pg/rBKywmia86-07Dkvca DiagnosticsComment on above: Result Comment: Interpretive Guide Intact PTH Calcium ------- Normal Parathyroid Normal Normal Hypoparathyroidism Low or Low Normal Low Hyperparathyroidism Primary Normal or High High Secondary High Normal or Low Tertiary High High Non-Parathyroid Hypercalcemia Low or Low Normal HighPerformed By: #### 905, 718, 79175, 7600, 96260, 01293, 622, 6399 #### [facility] [address] [facility], [address] [place] [phone] Pad Tufter: Vishnu Saldaña MDURIC ACIDon 40-67-9624Jdiyg [Mass/Vol]11.0 mg/dLHigh2.5-7.0Quest DiagnosticsComment on above:Result Comment: Therapeutic target for gout patients: <6.0 mg/dLPerformed By: #### 905, 718, 85806, 7600, 54005, 70270, 622, 6399 #### [facility] [address] [facility], [address] [place] [phone] Pad Tufter: Vishnu Saldaña MDVITAMIN D,25-OH,TOTAL,IAon 32-67-7897MAJBLKC D,25-OH,TOTAL,IA49 ng/vKChlkwk04-004Gyzkm DiagnosticsComment on above:Result Comment: Vitamin D Status 25-OH Vitamin D: Deficiency: <20 ng/mL Insufficiency: 20 - 29 ng/mL Optimal: > or = 30 ng/mL For 25-OH Vitamin D testing on patients on D2-supplementation and patients for whom quantitation of D2 and D3 fractions is required, the QuestAssureD(TM) 25-OH VIT D, (D2,D3), LC/MS/MS is recommended: order code 69852 (patients >2yrs). See Note 1 Note 1 For additional information, please refer to http://education.Ingogo.Mohound/faq/CNC838 (This link is being provided for informational/ educational purposes only.)Performed By: #### 905, 718, 31280, 7600, 92018, 75522, 622, 6399 #### [facility] [address] [facility], [address] [place] [phone] Pad Tufter: Vishnu Saldaña MD Vital Signs Date TimeVital SignValuePerforming AiplmnyayGjiouttb28-13-8064 11:010400Body .4 cmDennis Furlong DO Work Phone: [facility]10-24-2025 11:01-0400Body mass index (BMI) [Ratio]29.16 kg/q1Glhmlu Furlong DO Work Phone: [facility]10-[facility]-2025 11:01-0400Body msiorpcueov27.81 [degF]Chad Palomolong DO Work Phone: [facility]10-24-2025 11:010400Body boupxp39.72 kgDenremy Palomolong DO Work Phone: [facility] Txplnb96-86-6085 11:01-0400Diastolic blood iwutlqwl99 mm[Hg]Chad Maynardng DO Work Phone: [facility] Mpxfhl03-60-1410 11:01-0400Heart rate 77 /Toñito Maynardng DO Work Phone: [facility] Wscztw59-82-5280 11:010400 Respiratory rate20 /minDcolbyis Caesarng DO Work Phone: [facility] Xonfzd84-37-2016 11:014143XzY3% (BldA) [Mass fraction]98 %Chad Maynardng DO Work Phone: [facility] Gwalvh54-80-5329 11:01-0400Systolic blood qvwhltax265 mm[Hg]Chad Maynardng DO Work Phone: [facility] Hoaqlv82-74-8358 09:37-0400Body sxsxiq284.4 cmJonathan Macias RIG MANAGER-[employer] Work Phone: [facility] Hwmhuh96-80-7922 09:37-0400Body mass index (BMI) [Ratio]28.98 kg/m2Jonathan Macias RIG MANAGER-[employer]IMAL KEEPER [employer] Work Phone: [facility] Kbnpbc98-20-4178 09:37-0400Body uufmyjhiusx04.7 [degF]Jonathan Macias RIG MANAGER-ANIMAL KEEPER [employer] Work Phone: [facility] Cnxwmu83-04-3084 09:37-0400Body ozkxlx71.31 kgJonathan Macias RIG MANAGER-ANIMAL K[employer]PER [employer] Work Phone: [facility]07-24-2025 09:37-0400Diastolic blood vdzuotaf92 mm[Hg]Jonathan Macias R[employer] MANAGER[employer] Work Phone: [facility] [id number] 09:37-0400Heart rate 88 /minJonathan Macias RIG MANAGER[employer] Work Phone: [facility] [id number] 09:37-0400 Respiratory rate19 /minJonathan Macias RIG MANAGER[employer] Work Phone: [facility] [id number] 09:37-6521SmF8% (BldA) [Mass fraction]98 %Jonathan Macias RIG MANAGER-ANIMAL KEEPER HEAD Work Phone: [facility] Cykrlq15-83-3546 09:37-0400Systolic blood xwtkmoik066 mm[Hg]Jonathan Macias RIG MANAGER-ANIMAL KEEPER HEAD Work Phone: [facility] Qiqnzr22-42-8166 11:34-0400Body acqwpu966.4 cmChad Maynardng DO Work Phone: [facility] Tzeefm02-43-3300 11:34-0400Body mass index (BMI) [Ratio]29.92 kg/h2GxkeycChad Maynardng DO Work Phone: [facility] Yypnfo07-99-4203 11:34-0400Body zyodfctesci41.11 [degF]Chad Maynardng DO Work Phone: [facility] Xenzam96-82-5487 11:34-0400Body rodvfk95.49 kgDenremy Maynardng DO Work Phone: [facility] Wjclvj04-29-9554 11:34-0400Diastolic blood eonyxfzb51 mm[Hg]Chad Maynardng DO Work Phone: [facility]2025 11:34-0400Heart rate 89 /Elzbietais Stacialong DO Work Phone: [facility] Jbofst94-91-8943 11:34-0400 Respiratory rate16 /minDcolbyis Stacialong DO Work Phone: [facility]2025 11:34-1427HqC2% (BldA) [Mass fraction]100 %Chad Palomolong DO Work Phone: [facility]2025 11:34-0400Systolic blood mm[Hg]Chad Palomolong DO Work Phone: [facility]03-24-2025 11:11-0400Body pylefm006.9 cmChad Palomolong DO Work Phone: [facility]03-24-2025 11:11-0400Body mass index (BMI) [Ratio]29.6 kg/p9Odzpgm Furlong DO Work Phone: [facility] Nukwpf46-31-7176 11:11-0400Body wglgamaaejf70.01 [degF]Chad Maynardng DO Work Phone: [facility]03-24-2025 11:11-0400Body yusxme88.03 kgChad Palomolong DO Work Phone: [facility] Aohfss23-91-3375 11:110400Diastolic blood utmhvqou48 mm[Hg]Chad Palomolong DO Work Phone: [facility] Dswtif98-07-8992 11:11-0400Heart rate 94 /Toñito Palomolong DO Work Phone: [facility]03-24-2025 11:11-0400 Respiratory rate18 /Elzbietais Stacialong DO Work Phone: [facility]03-24-2025 11:110420KrU0% (BldA) [Mass fraction]97 %Chad Maynardng DO Work Phone: [facility] Xlqnat55-49-1194 11:11-0400Systolic blood jbzliyjr681 mm[Hg]Chad Palomolong DO Work Phone: [facility] Nynxld27-62-8462 11:24-0500Body yybeqi992.9 cmDenremy Palomolong DO Work Phone: [phone] Tuytdp66-65-0145 11:24-0500Body mass index (BMI) [Ratio]30.78 kg/b2Jehwccremy Maynardng DO Work Phone: [facility]02-10-2025 11:24-0500Body defhxngywci15.7 [degF]Chad Maynardng DO Work Phone: [facility] Tbzsak38-34-7875 11:24-0500Body xyfmjb10.85 kgDenremy Maynardng DO Work Phone: [facility] Ixcgey62-97-2005 11:24-0500Diastolic blood vifytrvy94 mm[Hg]Chad Maynardng DO Work Phone: [facility]02-10-2025 11:24-0500Heart rate 77 /Toñito Maynardng DO Work Phone: [facility] Qisqbr82-34-3420 11:24-0500 Respiratory rate20 /minDcolbyis Caesarng DO Work Phone: [facility] Rmnilf71-03-0668 11:24-1345TwE0% (BldA) [Mass fraction]100 %Chad Palomolong DO Work Phone: [facility] Koefha05-57-1513 11:24-0500Systolic blood dhkusxia984 mm[Hg]Chad Maynardng DO Work Phone: [facility] Ukigsc25-71-6732 10:03-0400Body msbjba625.9 cmDenremy Maynardng DO Work Phone: [facility] Gaajmk63-84-2089 10:03-0400Body mass index (BMI) [Ratio]31.33 kg/u6Ubzjpl Furlong DO Work Phone: [facility] Wmniog06-07-1370 10:03-0400Body cokzwtjxdqg56.81 [degF]Chad Palomolong DO Work Phone: [facility] Hqoayq25-45-7249 10:03-0400Body euaoua55.21 kgDenremy Palomolong DO Work Phone: [facility] Ecowiy78-03-2902 10:03-0400Diastolic blood dankccdb92 mm[Hg]Chad Maynardng DO Work Phone: [facility] Cdmaik16-27-4058 10:03-0400Heart rate 87 /Toñito Maynardng DO Work Phone: [facility] Nutmrv56-01-7556 10:03-0400 Respiratory rate20 /Toñito Maynardng DO Work Phone: [facility] Mjldeg62-73-6247 10:03-7488TwO1% (BldA) [Mass fraction]99 %Chad Palomolong DO Work Phone: [facility] Jkwdyp93-57-0783 10:03-0400Systolic blood mm[Hg]Chad Maynardng DO Work Phone: [facility] Sicnlw97-04-2830 11:03-0400Body dujygl640.9 cmChad Palomolong DO Work Phone: [facility] Ippgxz03-26-8884 11:03-0400Body mass index (BMI) [Ratio]31.55 kg/s6OtnskgChad Palomolong DO Work Phone: [facility] Yyifys16-69-6604 11:03-0400Body ykzanh21.75 kgDenremy Palomolong DO Work Phone: [facility] Wjabwm17-05-8624 11:03-0400Diastolic blood flfypusj34 mm[Hg]Chad Somers DO Work Phone: [facility] Fecfml70-71-8055 11:03-0400Systolic blood dbgithqm542 mm[Hg]Chad Somers DO Work Phone: [facility]05-06-2024 15:24-0400Body bqqfwa290.5 cmJill Roblero RIG MANAGER-ACCOUNT EXECUTIVE SOFTWARE SALES Work Phone: [facility]05-06-2024 15:24-0400Body mass index (BMI) [Ratio]29.67 kg/m2Jill Roblero RIG MANAGER-ACCOUNT EXECUTIVE SOFTWARE SALES Work Phone: [facility]05-06-2024 15:24-0400Body txvssukhhva80.39 [degF]Jill Roblero RIG MANAGER-ACCOUNT EXECUTIVE SOFTWARE SALES Work Phone: [facility] Cxgzka62-99-7287 15:24-0400Body kpqtdi30.57 kgJill Roblero RIG MANAGER-ACCOUNT EXECUTIVE SOFTWARE SALES Work Phone: [facility] Zxjgld42-38-8570 15:24-0400Diastolic blood zlvepjkl71 mm[Hg]Jill Roblero RIG MANAGER-ACCOUNT EXECUTIVE SOFTWARE SALES Work Phone: [facility]05-06-2024 15:24-0400Heart rate 90 /minJill Roblero RIG MANAGER-ACCOUNT EXECUTIVE SOFTWARE SALES Work Phone: [facility]05-06-2024 15:24-0400 Respiratory rate18 /minJill Roblero RIG MANAGER-ACCOUNT EXECUTIVE SOFTWARE SALES Work Phone: [facility]05-06-2024 15:24-1662YtG3% (BldA) [Mass fraction]98 %Jill Roblero RIG MANAGER-ACCOUNT EXECUTIVE SOFTWARE SALES Work Phone: [facility]05-06-2024 15:24-0400Systolic blood hihelksw406 mm[Hg]Jill Roblero RIG MANAGER-ACCOUNT EXECUTIVE SOFTWARE SALES Work Phone: [facility]02-16-2024 09:55-0500Body .5 cmChad Somers DO Work Phone: [facility] [employer]Rnlxyb25-74-0285 09:55-0500Body mass index (BMI) [Ratio]30.64 kg/d0SftpqfChad Maynardng DO Work Phone: [facility]02-16-2024 09:55-0500Body tnnvnpgakzm21.59 [degF]Chad Somers DO Work Phone: [facility] Sxgxxi78-02-0430 09:55-0500Body ohcxho18.98 kgChad Somers DO Work Phone: [facility] Thqdfr56-06-9492 09:55-0500Diastolic blood jduikjjf46 mm[Hg]Chad Somers DO Work Phone: [facility] Ijgrsh75-91-1726 09:55-0500Heart rate 96 /minDenncasandra Somers DO Work Phone: [facility] Tktvnq83-15-7974 09:55-9582AiY8% (BldA) [Mass fraction]97 %Chad Somers DO Work Phone: [facility] Zhmmem91-61-8872 09:55-0500Systolic blood mm[Hg]Chad Somers DO Work Phone: [facility] Encounters Encounter DateEncounter TypeCare ProviderFacilityStart: 12-26-2024 End: 67-60-0049Nfjlsr-up encounterDenremy Somers DO Work Phone: [facility] Internal Medicine - Family MedicineComment on above:Microalbumin - Albumin: Creatinine Urine Ratio, Comprehensive metabolic panel, Lipid profile, Hemoglobin V1wBrvzs: 12-23-2024 End: 00-63-5394Axckvz outpatient visit 25 minutesDenremy Somers DO Work Phone: [facility] Internal Medicine - Family MedicineComment on above: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 ([facility]) (Primary Dx); Mixed hyperlipidemia; Strain of left hip, initial encounter; Need for immunization against influenzaStart: 12-23-2024 End: 69-61-3155dbnqqmpmzvIOKLGEVA [facility] Center Ambulatory PPGStart: 12-01-2024 End: 58-12-8625IcrgifOsntsy G Furlong DO Work Phone: [facility] - Family MedicineComment on above: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Pro[facility] Internal Medicine - Family MedicineComment on above:Type 2 diabetes mellitus with diabetic chronic kidney disease ([facility])Start: 11-03-2024 End: 04-75-8561YvpdxqUgidbz G Furlong DO Work Phone: [facility] - Family MedicineComment on above:Type 2 diabetes mellitus with diabetic chronic kidney disease ([facility])Start: 09-28-2024 End: 08-96-9689UqmqaiOkrzuzz Boggs [facility] Internal Medicine - Family MedicineStart: 09-22-2024 End: 23-55-3842Hcobcq outpatient visit 25 minutesJonathan Macias APRN-ANIMAL KEEPER HEAD Work Phone: [facility] Medicine - Family MedicineComment on above:Type 2 diabetes mellitus with stage 3b chronic kidney disease, with long-term current use of insulin ([facility]) (Primary Dx); Essential hypertensionStart: 09-22-2024 End: 71-49-0648rtulzlgbkaGUKC D [facility]ENTERPEDRO PABLOCrystal [facility] Ambulatory PPGStart: 09-07-2024 End: 56-21-1500NsdsvtIwyzsf G Furlong DO Work Phone: [facility] Internal Medicine - Family MedicineComment on above:Essential (primary) hypertensionStart: 08-18-2024 End: 28-95-7024Zgwppj outpatient visit 25 minutesDenremy Palomolong DO Work Phone: [facility] Internal [facility] - Family MedicineComment on above:Strain of left hip, initial encounter (Primary Dx); Strain of left buttock, initial encounter; Dysuria; Allergic rhinitis, unspecified seasonality, unspecified trigger; Urinary tract infection without hematuria, site unspecifiedStart: 08-18-2024 End: 61-43-8701yjnkgbocnqALFZBCVA Medical Center Ambulatory PPGStart: 08-09-2024 End: 44-83-7302DpvxjwOxpmpa G Stacialong DO Work Phone: [facility] Medicine - Family MedicineComment on above:Essential (primary) hypertensionStart: 06-09-2024 End: 86-91-0955KrnufnEocxtb G Furlong DO Work Phone: [facility] Internal Medicine - Family MedicineComment on above: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 ([facility]); Type 2 diabetes mellitus with diabetic chronic kidney disease ([facility])Start: 05-24-2024 End: 38-03-1865Hbyemk OnlyDennis Charanjit Palomolong DO Work Phone: [facility] - Family MedicineStart: 05-23-2024 End: 96-59-5558enayfkuechEHMVXH G FURLONGKettering Healthtart: 05-23-2024 End: 69-96-7800Iqgssp outpatient visit 25 minutesDennis Charanjit Palomolong DO Work Phone: [facility] Internal Medicine - Family MedicineComment on above: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 ([facility]) (Primary Dx); Hypokalemia; Overweight; Pedal edema; Essential (primary) hypertensionStart: 05-23-2024 End: 21-20-0197fxzjanqtuzAXUDIFVA Medical Center Ambulatory PPGStart: 04-12-2024 End: 87-63-1068AnhmmdEyunbr Charanjit Palomolong DO Work Phone: [facility] Medicine - Family MedicineComment on above:Hyperlipidemia, unspecified; Essential (primary) hypertensionStart: 04-11-2024 End: 43-77-6968qqavilcemzHQXUCFThe Hospitals of [facility] HospitalStart: 04-11-2024 End: 15-36-1658Sdiqbs outpatient visit 25 minutesDennis G Furlong DO Work Phone: [facility] Medicine - Family MedicineComment on above: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 ([facility]) (Primary Dx); Pedal edema; Class 1 obesity due to excess calories with serious comorbidity and body mass index (BMI) of 30.0 to 30.9 in adult; HypokalemiaStart: 04-11-2024 End: 98-54-5244bzsvamidnkZAIPQEVA Medical Center Ambulatory PPGStart: 03-02-2024 End: 18-76-4221WmiubgKvbufa G Furlong DO Work Phone: [facility] Medicine - Family MedicineComment on above:Essential (primary) hypertensionStart: 02-08-2024 End: 30-16-0798QynqyzHzghpy G Furlong DO Work Phone: [facility] Medicine - Family MedicineComment on above:HypokalemiaStart: 12-01-2023 End: 15-12-4668KnpzfuDymucc G Furlong DO Work Phone: [facility] Internal Medicine - Family MedicineComment on above:Type 2 diabetes mellitus with diabetic chronic kidney disease ([facility])Start: 11-11-2023 End: 81-78-4700MwjdslWvmaoj G Furlong DO Work Phone: [facility] Medicine - Family MedicineComment on above:Type 2 diabetes mellitus with diabetic chronic kidney disease ([facility])Start: 11-11-2023 End: 73-01-7125QqftwwEdhaq Emmy [facility]ENPro[facility] Internal Medicine - Family MedicineComment on above:Localized edemaStart: 10-31-2023 End: 31-83-2702HyztbtHytzff G Furlong DO Work Phone: [facility] Internal Medicine - Family MedicineComment on above:Type 2 diabetes mellitus with diabetic chronic kidney disease ([facility])Start: 10-22-2023 End: 93-16-1355Eijbqg OnlyChad Somers DO Work Phone: [facility] Internal [facility] - [facility] MedicineStart: 10-21-2023 End: 36-80-5658mtbtbehkwpELGCXW G FURLONGProKettering Healthtart: 10-21-2023 End: 72-63-4097Yvfrmg outpatient visit 25 minutesDenremy Somers DO Work Phone: [facility] Internal Medicine - Family MedicineComment on above: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 ([facility]) (Primary Dx); Class 1 obesity due to excess calories with serious comorbidity and body mass index (BMI) of 31.0 to 31.9 in adult; Hypokalemia; Localized edema; Mixed hyperlipidemiaStart: 10-12-2023 End: 18-75-1280YwsmyyQgffac G Furlong DO Work Phone: [facility] Internal Medicine - Family MedicineComment on above:Essential (primary) hypertensionStart: 10-06-2023 End: 60-34-8183KsjcjjNycfqxam [facility] Internal Medicine - Family MedicineStart: 09-10-2023 End: 06-66-2685Affmqfsxd encounterYulisa Curtis [facility] Internal Medicine - Family MedicineStart: 09-09-2023 End: 15-26-4466BtyvhuCuizdj G Furlong DO Work Phone: [facility] Internal Medicine - Family MedicineComment on above:Essential (primary) hypertensionStart: 09-01-2023 End: 74-43-5404Ucxtuwh encounter procedureChad Somers DO Work Phone: [facility] Internal Medicine - Family MedicineComment on above:Medicare annual wellness visit, subsequent (Primary Dx); Screening for depression; Class 1 obesity due to excess calories with serious comorbidity and body mass index (BMI) of 31.0 to 31.9 in adultStart: 07-31-2023 End: 57-78-7186OohoniXmzbbr G Furlong DO Work Phone: [facility] Internal Medicine - Family MedicineComment on above:Hypokalemia; Essential (primary) hypertensionStart: 07-06-2023 End: 90-40-1304Yemymf outpatient visit 15 minutesJill Roblero RIG MANAGER-ACCOUNT EXECUTIVE SOFTWARE SALES Work Phone: [facility] Internal Medicine - Family MedicineComment on above:Sciatica associated with disorder of lumbar spine (Primary Dx)Start: 27-55-1188SgccewWqhncv G Furlong DO Work Phone: [facility] Internal Medicine - Family MedicineComment on above: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 ([facility]); Type 2 diabetes mellitus with diabetic chronic kidney disease ([facility])Start: 75-49-8417FdkdumLrvtqt G Furlong DO Work Phone: [facility] Internal Medicine - Family MedicineComment on above:Localized edemaStart: 04-17-2023 End: 16-36-2393Gzvylh outpatient visit 25 minutesChad Somers DO Work Phone: [facility] Internal Medicine - Family MedicineComment on above: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 ([facility]) (Primary Dx); Type 2 diabetes mellitus with stage 3b chronic kidney disease, with long-term current use of insulin ([facility]); Class 1 obesity due to excess calories with serious comorbidity and body mass index (BMI) of 30.0 to 30.9 in adult; HypokalemiaStart: 39-36-8354GulxtwEypcmm G Furlong DO Work Phone: [facility] Internal Medicine - Family MedicineComment on above:Hyperlipidemia, unspecifiedStart: 82-22-8882Yehtaisanta Somers DO Work Phone: [facility] Internal Medicine - Family MedicineComment on above:Essential (primary) hypertensionStart: 14-91-7194Nikupj Chad Donohue Furlong DO Work Phone: [facility] Internal Medicine - Family MedicineComment on above:Essential (primary) hypertensionStart: 01-17-2022 End: 23-26-4266qsjihmquypGM CHAD MAYNARDNGFacility:H1 Procedures DateProcedureProcedure DetailPerforming ClinicianStart: 47-44-9539Dovfd depression screening assessmentDennis Furlong DO Work Phone: Start: 60-40-2160Jskqpdliin glycosylated k1bHsuyhiginio Macias RIG MANAGER-ANIMAL KEEPER HEAD Work Phone: Start: 39-03-7576Bpsze depression screening assessment Jonathan Macias RIG MANAGER-ANIMAL KEEPER HEAD Work Phone: Start: 32-63-3152Bdtce dip stick/tablet rgnt non-auto w/o micrscpDennis Charanjit Furlong DO Work Phone: Start: 73-71-3522Ebocz depression screening assessment Chad Furlong DO Work Phone: Start: 88-03-1435Ksnos depression screening assessment Chad Furlong DO Work Phone: Start: 61-42-6305Kvvzm depression screening assessment Chad Furlong DO Work Phone: Start: 83-37-3118Elyzu depression screening assessment Chad Furlong DO Work Phone: Start: 67-65-5774Gdioy depression screening assessment Chad Furlong DO Work Phone: Start: 52-71-4182Uzkvm depression screening assessment Jill Roblero RIG MANAGER-ACCOUNT EXECUTIVE SOFTWARE SALES Work Phone: Start: 07-93-3447Pyrby depression screening assessment Chad Furlong DO Work Phone: Start: 15-66-3321Fbxog depression screening assessment Chad Furlong DO Work Phone: Plan of Treatment DateCare ActivityDetailAuthorStart: 31-22-5799OOdM,Tdap and Td Vaccines (3 - Td or Tdap)DTaP,Tdap and Td Vaccines (3 - Td or Tdap)[facility] SystemStart: 87-69-9930Oejmivsidp ScreeningDepression ScreeningC[facility] SystemStart: 86-59-7949Ndti Risk ScreeningFall Risk ScreeningKind[facility] Healthcareca [facility] SystemStart: 07-67-4597Naangct ScreeningTobacco ScreeningKindred Healthcareca Health SystemStart: 07-01-0123Ycvaaxwgcm ScreeningDepression ScreeningKindred [facility]ca [facility] SystemStart: 02-40-5265Xjgk Risk ScreeningFall Risk ScreeningKindred [facility]ca [facility] SystemStart: 98-57-4227Puplwyd ScreeningTobacco ScreeningKindred [facility]ca [facility] SystemStart: 06-71-3830Brndomptvd ScreeningDepression ScreeningC[facility] SystemStart: 08-64-3951Xzhr Risk ScreeningFall Risk ScreeningC[facility] SystemStart: 16-70-8757Ywzmibh ScreeningTobacco ScreeningC[facility] SystemStart: 44-71-0164Mrimkvxxwz ScreeningDepression ScreeningC[facility] SystemStart: 47-00-0718Qsva Risk ScreeningFall Risk ScreeningC[facility] SystemStart: 35-64-1759Yhyrqkd ScreeningTobacco ScreeningC[facility] SystemStart: 04-25-2025 End: 64-49-3284Iyaxybu encounter tcvrebttt78/24/2026 2:15 PM EST Office Visit [facility] [address] [place] [address] Chad Somers, DO [address], [place] [address] [facility] - Family MedicineStart: 49-13-8699Oulyelvrgf ScreeningDepression ScreeningC[facility] SystemStart: 87-65-1625Lohx Risk ScreeningFall Risk ScreeningC[facility] SystemStart: 45-26-6747Uuexidf ScreeningTobacco ScreeningC[facility] SystemStart: 53-13-1339Yaqrjybuubmyfi of varicella zoster vaccineZoster (Shingles) Vaccine (1 of 2)[facility] SystemComment on above:Postponed from 1986 (Patient Refused)Start: 25-62-4371ENANW-19 Vaccine ()COVID-19 Vaccine ()[facility] SystemComment on above:Postponed from 11/01/2023 (Vaccine Not Available)Start: 12-23-2024 End: 43-16-5645Iwsvlkk encounter gdxspbcka61/24/2025 11:00 AM EDT Office Visit [facility] [address] [place] [address] Chad Somers DO [address] [place] [place] [address] [facility]: 00-12-6937MWTQJ-19 Vaccine ( season)COVID-19 Vaccine ()[facility] Start: 46-48-3079Jlnbtedca vaccinationInfluenza VaccineC[facility] Clinic [facility] Start: 18-17-5095Vnofg BMI ScreeningAdult BMI ScreeningC[facility] Clinic [facility] Start: 34-13-5429Aonfxahife ScreeningDepression ScreeningC[facility] Start: 87-93-6061Kvnf Risk ScreeningFall Risk ScreeningC[facility] Start: 12-32-9955Exkggnj ScreeningTobacco ScreeningC[facility] SystemStart: 09-22-2024 End: 79-55-3065Pzgzceg encounter uuxtdewas03/24/2025 9:30 AM EDT Office Visit [facility] [address] [place] [address] Chad Somers DO [address] [place] [place] [address] [facility]: 09-01-2024 End: 16-86-7180Jthjvul encounter esvzylatb91/03/2025 10:40 AM EDT Office Visit [facility] [address] [place] [address] [phone] Physicians Internal [facility] Hospitaltart: 86-25-5810Sojmh BMI ScreeningAdult BMI ScreeningProSelect [facility] SystemStart: 54-14-8085Tqzxivwzpo ScreeningDepression ScreeningProSelect [facility] SystemStart: 06-58-0471Uope Risk ScreeningFall Risk ScreeningProSub[facility] SystemStart: 07-02-2025Medicare Annual Wellness VisitMedicare Annual Wellness VisitProSuburban Community Hospital & [facility] SystemStart: 88-05-7638Sspqorw ScreeningTobacco Screening [facility] SystemStart: 08-18-2024 End: 63-73-9451GJ Pelvis and Hip - left 2 ViewsX-ray hip left 2-3 views with or without pelvis Imaging Routine Strain of left hip, initial encounter Expected: 08/18/2024, Expires: 08/18/2025[facility] Work Phone: Comment on above:Expected: 08/18/2024, Expires: 08/18/2025Start: 05-36-9200Xdcdd BMI ScreeningAdult BMI ScreeningProSuburban Community Hospital & [facility] SystemStart: 76-61-1002Fwsxvcwosl ScreeningDepression ScreeningProSuburban Community Hospital & [facility] SystemStart: 33-00-6930Xdll Risk ScreeningFall Risk ScreeningProSuburban Community Hospital & [facility] SystemStart: 54-23-5658Eithgks ScreeningTobacco ScreeningProSuburban Community Hospital & [facility] SystemStart: 05-23-2024 End: 92-15-7183Hxbfkjp encounter bxgvdinvx04/24/2025 11:00 AM EDT Office Visit [facility] - Family Medicine [address] [place] [address] Chad Somers, DO [address], [place] [address] [facility] MedicineStart: 49-59-6588Osreh BMI Follow Up PlanAdult BMI Follow Up PlanCleveland Clinic Lutheran Hospital SystemStart: 07-59-7037Rcobi BMI ScreeningAdult BMI ScreeningProSuburban [facility] & [facility] SystemStart: 82-51-8673Rozxrqqpwc ScreeningDepression ScreeningProSuburban Community Hospital & [facility] SystemStart: 13-51-5952Wrxd Risk ScreeningFall Risk ScreeningProSuburban [facility] & [facility] SystemStart: 14-86-9155Falsabd ScreeningTobacco ScreeningProSuburban Community Hospital & [facility] SystemStart: 04-11-2024 End: 17-26-9006Ydfitls encounter /10/2025 11:15 AM EST Office Visit [facility] [address] [place] [id number] Chad Somers, DO [address] [facility] [place] [address] [facility]: 46-14-3180Kygmw BMI ScreeningAdult BMI ScreeningProSuburban Community Hospital & [facility] SystemStart: 38-04-8879Bzmpnfoide ScreeningDepression ScreeningC[facility] Clinic [facility] SystemStart: 33-53-4500Gczq Risk ScreeningFall Risk ScreeningC[facility] Clinic [facility] SystemStart: 22-42-5871Wmogpan ScreeningTobacco ScreeningC[facility] Clinic [facility] SystemStart: 80-07-1537UIEYF-19 Vaccine ()COVID-19 Vaccine ()[facility] SystemStart: 69-13-6226QIEPE-19 Vaccine ()COVID-19 Vaccine ()[facility] SystemStart: 47-57-9440Twgddrwxm vaccinationInfluenza VaccineAsheville Specialty Hospitaltart: 10-21-2023 End: 33-41-5845Wuyvxzd encounter nopplqqrj17/21/2024 10:00 AM EDT Office Visit [facility] [address] [place] [address] Chad Somers, DO [address], [place] [address] [facility] MedicineStart: 09-01-2023 End: 49-79-3578Yhnjvmg encounter ptkpaeadj51/02/2024 10:50 AM EDT [facility] Medicine [address] [place] [address] [facility] MedicineStart: 06-15-2024Medicare Annual Wellness VisitMedicare Annual Wellness VisitAsheville Specialty Hospitaltart: 07-06-2023 End: 81-92-9973IQ Lumbar spine 2 or 3 ViewsX-ray spine lumbar 2 or 3 views Imaging Routine Sciatica associated with disorder of lumbar spine Expected: 07/06/2023, Expires: 07/05/2024[facility]: Comment on above:Expected: 07/06/2023, Expires: 07/05/2024Start: 72-71-4415QLmD,Tdap and Td Vaccines (2 - Td or Tdap)DTaP,Tdap and Td Vaccines (2 - Td or Tdap)[facility]: 04-17-2023 End: 83-63-4611Gircoyl encounter oxrwvjxeo79/16/2024 10:00 AM EST Office Visit [facility] Internal Medicine [facility] Medicine [address] [place] [address] Chad Somers, DO [address], [place] [address] [facility] Internal Medicine [facility] MedicineStart: 16-66-6544JWKDS-19 Vaccine ( season)COVID-19 Vaccine ( season)[facility] System Start: 89-74-0243Xjvjtmtqnfeffp of varicella zoster vaccineZoster (Shingles) Vaccine (1 of 2)[facility] SystemStart: 05-68-4344Srwumcoeaylpxv of varicella zoster vaccineZoster (Shingles) Vaccine (1 of 2)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 ([facility]) 1 Occurrences starting 04/17/2023 until 04/17/2024[facility] Work Phone: Comment on above:1 Occurrences starting 04/17/2023 until 04/17/2024 End: 14-98-3549IGS panel - Blood by Automated countCBC Lab Routine Hypertension associated with stage 3b chronic kidney disease due to type 2 diabetesmellitus ([facility]) 1 Occurrences starting 04/17/2023 until 04/17/2024ProSelect [facility] Specialty Hospital - CincinnatiAirspan Networks SystemComment on above:1 Occurrences starting 04/17/2023 until 04/17/2024 End: 85-95-3034Qfaxxwwldaqfx metabolic 2000 panel - Serum or PlasmaComprehensive metabolic panel Lab Routine 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 ([facility]) 1 Occurrences starting 04/11/2024 until 04/11/2025[facility] Work Phone: Comment on above:1 Occurrences starting 04/11/2024 until 04/11/2025 End: 77-63-7982Gunsrhckpklsu metabolic 2000 panel - Serum or PlasmaComprehensive metabolic panel Lab Routine 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 ([facility]) 1 Occurrences starting 10/21/2023 until 10/20/2024ProSelect Medical Specialty Hospital - CincinnatiAirspan Networks SystemComment on above:1 Occurrences starting 10/21/2023 until 10/20/2024 End: 46-38-5800Oeniyqeiardhp metabolic 2000 panel - Serum or PlasmaComprehensive metabolic panel Lab Routine 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 ([facility]) 1 Occurrences starting 12/23/2024 until 12/23/2025ProChimeros SystemComment on above:1 Occurrences starting 12/23/2024 until 12/23/2025omprehensive metabolic 2000 panel - Serum or PlasmaComprehensive metabolic panel Lab Routine 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 ([facility]) 12/23/2024 11:36 AM Theatro End: 17-37-7982Ddykj 1996 panel - Serum or PlasmaLipid profile Lab Routine Mixed hyperlipidemia 1 Occurrences starting 12/23/2024 until 12/23/2025ProChimer[facility] SystemComment on above:1 Occurrences starting 12/23/2024 until 12/23/2025 Lipid 1996 panel - Serum or PlasmaLipid profile Lab Routine Mixed hyperlipidemia 12/23/2024 11:36 AM Theatro End: 26-14-3570Xpdeo panelLipid panel Lab Routine 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 ([facility]) 1 Occurrences starting 10/21/2023 until 10/20/2024ProChimer[facility] SystemComment on above:1 Occurrences starting 10/21/2023 until 10/20/2024 End: 81-81-2253Zygxwppjx [Mass/volume] in Serum or PlasmaMagnesium Lab Routine Hypertension associated with stage 3b chronic kidney disease due to type 2 jerrod betes mellitus ([facility]) 1 Occurrences starting 04/17/2023 until 04/17/2024 [facility] SystemComment on above:1 Occurrences starting 04/17/2023 until 04/17/2024 End: 54-94-3390Ezvqyqfwelit - Albumin: Creatinine Urine RatioMicroalbumin - Albumin: Creatinine Urine Ratio Lab Routine 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 ([facility]) 1 Occurrences starting 10/21/2023 until 10/20/2024ProCas[facility] Phone: Comment on above:1 Occurrences starting 10/21/2023 until 10/20/2024 End: 18-84-9666Rdirhqtqlbij - Albumin: Creatinine Urine RatioMicroalbumin - Albumin: Creatinine Urine Ratio Lab Routine 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 ([facility]) 1 Occurrences starting 12/23/2024 until 12/23/2025[facility] HospitalChimeros SystemComment on above:1 Occurrences starting 12/23/2024 until 12/23/2025Microalbumin - Albumin: Creatinine Urine RatioMicroalbumin - Albumin: Creatinine Urine Ratio Lab Routine 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 ([facility]) 12/23/2024 11:36 AM Theatro End: 74-18-6069Qjayxfaanpy Hormone, intactParathyroid Hormone, intact Lab Routine 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 ([facility]) 1 Occurrences starting 04/17/2023 until 04/17/2024[facility] SystemComment on above:1 Occurrences starting 04/17/2023 until 04/17/2024 End: 35-03-3610Uiverfexq [Mass/volume] in Serum or PlasmaPhosphorus Lab Routine Hypertension associated with stage 3b chronic kidney disease due to type 2 di abetes mellitus ([facility]) 1 Occurrences starting 04/17/2023 until 04/17/2024 [facility] SystemComment on above:1 Occurrences starting 04/17/2023 until 04/17/2024 End: 16-01-3305Rtawjjixzhe [Units/volume] in Serum or PlasmaTSH Lab Routine Hypertension associated with stage 3b chronic kidney disease due to type 2 diabetesmellitus ([facility]) 1 Occurrences starting 04/11/2024 until 04/11/2025 [facility] SystemComment on above:1 Occurrences starting 04/11/2024 until 04/11/2025 End: 36-14-6599Mopbw [Mass/volume] in Serum or PlasmaUric acid Lab Routine Hypertension associated with stage 3b chronic kidney disease due to type 2 jerrod betes mellitus ([facility]) 1 Occurrences starting 04/17/2023 until 04/17/2024 [facility] SystemComment on above:1 Occurrences starting 04/17/2023 until 04/17/2024 End: 35-07-6279Lzbvzac D 25 hydroxyVitamin D 25 hydroxy Lab Routine 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 ([facility]) 1 Occurrences starting 04/17/2023 until 04/17/2024Pro[facility] SystemComment on above:1 Occurrences starting 04/17/2023 until 04/17/2024 Immunizations Immunization DateImmunizationNotesCare IaumibsmPrfakjmj19-75-9582Wdderaok trivalent influenza vaccine, adjuvanted, preservative Nic Somers DO Work Phone: [facility]red HealthcareGonwayMjrloy72-26-4577Ppthuajyeori, In Clinic,; Translations: [Drug or medicament (substance)]Chad Somers DO Work Phone: [facility] OhioWuroir44-37-2893tzaxqlafk, high dose seasonal, preservative-freeDennis Furlong DO Work Phone: [facility] OhioEdslkn25-46-4446yihagwyao virus vaccine, unspecified formulationDennis Furlong DO Work Phone: [facility]07-24-2024tetanus toxoid, reduced diphtheria toxoid, and acellular pertussis vaccine, adsorbedDennis Furlong DO Work Phone: [facility] OhioSoogzf93-58-7387vvahemlkq virus vaccine, unspecified formulationDennis Furlong DO Work Phone: [facility] OhioQttrfx67-51-8384Xbvkyyjlf, High-dose, QuadrivalentDennis Furlong DO Work Phone: [facility] OhioZpgdwf28-24-1337zexdbquos virus vaccine, unspecified formulationDennis Furlong DO Work Phone: [facility] OhioMboefz30-08-9119Tokki-85, Mrna, Lnp- s, Pf, 30 Mcg/0.3 Ml Dose, Víctor-sucroseDennis Furlong DO Work Phone: [facility] OhioJnizzs31-63-9329JESZE-29, mRNA, LNP- S, PF, 30mcg/0.3mL DoseDennis Furlong DO Work Phone: [facility] OhioNjgqpe38-73-0042Xlzbkkapv, High-dose, QuadrivalentDennis Furlong DO Work Phone: [facility] OhioKiyysh81-48-4084BYTGT-09, mRNA, LNP- S, PF, 30mcg/0.3mL DoseDennis Furlong DO Work Phone: [facility] OhioXwoecf70-56-7561dufjglsfs, injectable, quadrivalent, preservative freeDennis Furlong DO Work Phone: [facility] OhioMbrctt12-19-5890Wupvgjdnp, injectable, Madin [place] Canine Kidney, quadrivalent with preservativeDennis Furlong DO Work Phone: [facility] OhioKsrzfg71-70-8855dgfoepbka, high dose seasonal, preservative-freeDennis Furlong DO Work Phone: [facility] OhioPhfura17-13-1536vbhpjzdsn, seasonal, injectable, preservative freeDennis Furlong DO Work Phone: [facility] OhioIrtker44-26-5451rhhrjwzvc, high dose seasonal, preservative-freeDennis Furlong DO Work Phone: [facility] OhioZmzuge55-65-4123cmofuauqvqhr conjugate vaccine, 13 valentDennis Furlong DO Work Phone: [facility]03-31-2014tetanus toxoid, reduced diphtheria toxoid, and acellular pertussis vaccine, adsorbedDennis Furlong DO Work Phone: [facility] OhioDozugw20-64-7569kqmetiuwjxvt polysaccharide vaccine, 23 valentDennis Furlong DO Work Phone: [facility] Payers DatePayer CategoryPayerPolicy [id number] Care Other (unspecified)[facility] Member Subscriber Plan / Payer (Effective 2010-Present) Name: Zina Curtis Relation to Subscriber: Self Name: Zina Curtis Payer ID: Not on file Group ID: [id number] Type: Not on file Address: [address] [id number] UnknownMUTUAL OF [facility]PP[facility]AN [id number] 2010- Present [phone] [address] [place] [address] [id number] [id number] 1960Medicare [id number] [id number] 2.16.840.1.[id number] 2.16.840.1.055707.3.57[id number] 2.16.840.1.090895.3.57[id number] 2.16.840.1.331987.3.57[id number] 2.16.840.1.455255.3.57[id number] 2.16.840.1.261807.3.57[id number] 2.16.840.1.684450.3.57[id number] 2.16.840.1.357649.3.579.2.1286 Social History DateTypeDetailFacilityStart: 34-41-1662Ddhrjkf smoking status NHISNever smoked tobaccoProSuburban Community Hospital & [facility] SystemStart: 62-99-1955Lumtacb use and exposureSmokeless tobacco non-userC[facility] Clinic Luther[facility] Hospital SystemStart: 10-21-2023 End: 65-59-6468Vcwktmujd beverage intakeCurrent drinker of alcohol (finding) [facility] Hospitaltart: 05-14-2022 End: 93-31-9211Zbcliri of Social functionAsheville Specialty Hospitaltart: 05-14-2022 End: 83-27-7454OQX UtilitiesSelect Medical Specialty Hospital - [facility] OhioHas the electric, gas, oil, or water company threatened to shut off services in your home in past 12MoNo [facility] OhioDo you belong to any clubs or organizations such as amish groups, unions, fraternal or athletic groups, or school groups?Yes [facility] OhioAre you now , , , , never or living with a partner?MarriedSelect Medical Specialty Hospital - Southeast OhioHow often to you have a drink containing alcohol?Monthly or lessSelect Medical Specialty Hospital - Southeast OhioHow many standard drinks containing alcohol do you have on a typical day?1 or 2PMagruder Memorial HospitalHow often do you have 6 or more drinks on 1 occasion?NeverSelect Medical Specialty Hospital - [facility] OhioHow hard is it for you to pay for the very basics like food, housing, medical care, and heatingNot hard at allSelect Medical Specialty Hospital - Southeast OhioDo you feel stress - tense, restless, nervous, or anxious, or unable to sleep at night because yourmind is troubled all the time - these days [OSQ]Only a little [facility] Hospitaltart: 85-34-0890Aro assigned at birthNot on file [facility] Islandtart: 36-07-1774VprJuaius (finding)[facility] Medical Equipment Procedure CodeEquipment CodeEquipment Original TextEquipment IdentifierDatesLen 21.0 [facility] [address] - [id number] - [id number]: 89-05-2406ISX DIRECTED to test BLOOD SUGAR EVERY [id number]: 11-02-2023 End: 69-95-0471EHY TO TEST BLOOD SUGAR EVERY [id number]: 11-12-2022 End: 85-68-5729YJM DIRECTED to test BLOOD SUGAR EVERY [id number]: 11-24-2024 Clinical Notes 04-17-2023 to 12-26-2024 Note Date & VkpuLmawNsuoqhdd94-10-4079 Miscellaneous Notes* Telephone Encounter - Iona Zelaya CMA - 12/26/2024 10:00 AM EDT ----- Message from Chad Somers DO sent at 12/26/2024 10:00 AM EDT ----- Her labs look pretty good. Her A1c improved to 7.9%. Her stage IIIB chronic kidney disease is stable. Her ACR was negative. Her lipids were all at goal. Good job. Continue current regimen ----- Message ----- From: Lab, Background User Sent: 12/23/2024 6:13 PM EDT To: Chad Somers DO * Telephone Encounter - Iona Zelaya CMA - 12/26/2024 10:00 AM EDT Pt returned our call and I read result note. Pt verbally states she understands. documented in this encounterSelect Medical Specialty [facility]10-27-2025 Telephone encounter Note* Telephone Encounter - Iona Zelaya CMA - 12/26/2024 10:00 AM EDT ----- Message from Chad Somers DO sent at 12/26/2024 10:00 AM EDT ----- Her labs look pretty good. Her A1c improved to 7.9%. Her stage IIIB chronic kidney disease is stable. Her ACR was negative. Her lipids were all at goal. Good job. Continue current regimen ----- Message ----- From: Lab, Background User Sent: 12/23/2024 6:13 PM EDT To: Chad Somers DO [facility]10-27-2025 Telephone encounter Note* Telephone Encounter - Iona Zelaya CMA - 12/26/2024 10:00 AM EDT Pt returned our call and I read result note. Pt verbally states she understands. [facility] Ewpwmy39-03-9318 History of Present illness Narrative* Chad Somers, DO - 12/23/2024 11:00 AM EDT Images from the original note were not included. Subjective Patient ID: Zina Curtis is a 89 y.o. female. Zina presents today for a diabetic recheck. She was seen 3 months ago for diabetes. Her A1c was8.1%. No changes were made because of her advanced age. Her left hip is still hurting. It is not as bad as it was. It hurts when she stands and walks on it. It gets worse the more she stands and walks on it. When she 1st gets up it is not too bad. She does not have any buttock pain anymore. It is on the outer part of her upper thigh. She did not get thex-ray done. At the time she said it hurt too bad to go and get it done. Since then she has just notgotten around to it. The following portions of the patient's history were reviewed and updated as appropriate: allergies, current medications, past family history, past medical history, past social history, past surgicalhistory, problem list, and medication reconciliation was completed including current medication andpost discharge medication. Review of Systems Constitutional: Negative. HENT: Positive for hearing loss. Respiratory: Negative. Cardiovascular: Negative. Gastrointestinal: Negative. Musculoskeletal: Positive for arthralgias. Psychiatric/Behavioral: Negative. Objective Physical Exam Vitals reviewed. Constitutional: General: She is not in acute distress. Appearance: She is not ill-appearing. HENT: Head: Normocephalic. Cardiovascular: Rate and Rhythm: Normal rate and regular rhythm. Heart sounds: Normal heart sounds. No murmur heard. Pulmonary: Effort: Pulmonary effort is normal. No respiratory distress. Breath sounds: Normal breath sounds. No wheezing, rhonchi or rales. Musculoskeletal: Cervical back: Neck supple. Left upper leg: Tenderness present. No bony tenderness. Right lower leg: No edema. Left lower leg: No edema. Legs: Lymphadenopathy: Cervical: No cervical adenopathy. Neurological: General: No focal deficit present. Mental Status: She is oriented to person, place, and time. Gait: Gait abnormal (ambulates with a cane). Psychiatric: Attention and Perception: Attention normal. Mood and Affect: Mood normal. Speech: Speech normal. Behavior: Behavior normal. Behavior is cooperative. Thought Content: Thought content normal. Judgment: Judgment normal. Assessment/Plan Zina was seen today for 3 month. 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 An A1c in the 8% range is acceptable since she does not have any diabetic complications and she is of an advanced age. Tight control might lead to hypoglycemia and falls. Mixed hyperlipidemia - Lipid profile; Future - Lipid profile Check lipid panel Strain of left hip, initial encounter - Ambulatory referral to Physical Therapy; Future I recommend that she get the x-ray done. We discussed various possibilities for her left thigh pain. It does seem to be improved. Could be radicular pain from her back. She seems to have pretty good range of motion in the hip. Pain is not really over the greater trochanter either but inferior to it. She is willing to do physical therapy because it has gone on for so long and she requires a cane. They can work on balance gait training as well. Need for immunization against influenza - Influenza, Trivalent, Adjuvanted Recommended flu vaccine and she agreed. documented in this encounterKindred HealthcareAirspan Networks [id number] History of Present illness Narrative* Jonathan Macias APRN-VICENTA - 09/22/2024 9:30 AM EDT IM PROGRESS NOTE Patient - Zina Curtis Age - 89 y.o. - 1935 ASSESSMENT & PLAN 1. Type 2 diabetes mellitus with stage 3b chronic kidney disease, with long-term current use of insulin ([facility]) (Primary) -A1c 8.1 -No change to medication regimen - POCT Hemoglobin A1c 2. Essential hypertension -Reviewed BP today and at goal. -No change to BP medications Subjective The following portions of the patient's history were reviewed and updated as appropriate: allergies, current medications, past family history, past medical history, past social history, past surgicalhistory and problem list. DIABETIC VISIT This is a follow up of a pre-existing problem. Patient self monitoring includes finger stick BG checkin time/day. Patient experiences hypoglycemia Rarely. Patient symptoms of hyperglycemia include: none. Current prescribed diet is eats a balanced diet. Patient is following the prescribed diet plan. Home activity includes: Exercise is limited by orthopedic condition(s): hip pain.. Patient does not experience numbness or burning in their hands or feet. Patient does not have vision changes. Last eye exam was: 1 year ago. She is going to make an appointment soon for this year Patient BP monitoring is done sporadically, and can't recall values. Patient reports: taking medications as instructed, no medication side effects noted, no chest pain on exertion, no dyspnea on exertion, noting swelling of ankles, no orthostatic dizziness or lightheadedness, no palpitations, no intermittent claudication symptoms, and no erectile dysfunction Issues affecting compliance with diabetic self management include: none Review of Systems Constitutional: Negative for activity change, appetite change, chills, diaphoresis, fatigue and fever. HENT: Negative for tinnitus and trouble swallowing. Respiratory: Negative for cough, chest tightness, shortness of breath and wheezing. Cardiovascular: Positive for leg swelling. Negative for chest pain and palpitations. Gastrointestinal: Negative for abdominal pain, diarrhea, nausea and vomiting. Endocrine: Negative for polydipsia, polyphagia and polyuria. Genitourinary: Negative for difficulty urinating. Musculoskeletal: Positive for arthralgias and gait problem (uses cane with ambulation). Skin: Negative for rash. Neurological: Negative for dizziness, syncope, speech difficulty, weakness, light-headedness, numbness and headaches. Psychiatric/Behavioral: Negative for sleep disturbance. Exam BP 140/70 (BP Site: Right Arm, BP Postition: Sitting, BP CUFF SIZE: S (7-9 inches)) Pulse 88 Temp 36.5 C (97.7 F) (Tympanic) Resp 19 Ht 152.4 cm (5') Wt 67.3 kg (148 lb 6.4 oz) SpO2 98% BMI 28.98 kg/m Physical Exam Vitals and nursing note reviewed. Constitutional: General: She is not in acute distress. HENT: Head: Normocephalic and atraumatic. Mouth/Throat: Mouth: Mucous membranes are moist. Pharynx: Oropharynx is clear. Eyes: Conjunctiva/sclera: Conjunctivae normal. Pupils: Pupils are equal, round, and reactive to light. Cardiovascular: Rate and Rhythm: Normal rate and regular rhythm. Pulses: Normal pulses. Pulmonary: Effort: Pulmonary effort is normal. Breath sounds: Normal breath sounds. Musculoskeletal: Cervical back: Normal range of motion. Right lower leg: Edema present. Left lower leg: Edema present. Comments: Non pitting ankle swelling bilaterally Skin: General: Skin is warm and dry. Capillary Refill: Capillary refill takes less than 2 seconds. Neurological: General: No focal deficit present. Mental Status: She is alert and oriented to person, place, and time. Psychiatric: Behavior: Behavior normal. Meds Current Outpatient Medications: amLODIPine (NORVASC) 10 mg tablet, TAKE 1 TABLET BY MOUTH DAILY, Disp: 90 tablet, Rfl: 1 aspirin 81 mg, Take 1 tablet (81 mg total) by mouth in the morning., Disp: , Rfl: atorvastatin (LIPITOR) 80 mg tablet, TAKE 1 TABLET BY MOUTH DAILY, Disp: 90 tablet, Rfl: 3 benazepriL (LOTENSIN) 40 MG tablet, TAKE 1 TABLET BY MOUTH IN THE MORNING, Disp: 30 tablet, Rfl: 5 blood sugar diagnostic (TRUE METRIX GLUCOSE TEST STRIP) strip, USE DIRECTED to test BLOOD SUGAR EVERY DAY, Disp: 100 strip, Rfl: 3 calcium carbonate-vitamin D3 600 mg-10 mcg (400 unit) capsule, , Disp: , Rfl: dapagliflozin propanediol (FARXIGA) 10 mg tablet, TAKE 1 TABLET BY MOUTH ONCE DAILY IN THE MORNING,Disp: 30 tablet, Rfl: 5 furosemide (LASIX) 40 mg tablet, TAKE 1 TABLET BY MOUTH DAILY, Disp: 30 tablet, Rfl: 5 hydroCHLOROthiazide (HYDRODIURIL) 25 mg tablet, TAKE 1 TABLET BY MOUTH DAILY, Disp: 30 tablet, Rfl:5 LANTUS SOLOSTAR U-100 INSULIN 100 unit/mL (3 mL) insulin pen, INJECT 40 UNITS SUBCUTANEOUSLY (UNDERTHE SKIN) EVERY NIGHT, Disp: 15 mL, Rfl: 3 loratadine (CLARITIN) 10 mg tablet, Take 1 tablet (10 mg total) by mouth daily as needed for allergies., Disp: 30 tablet, Rfl: 2 metFORMIN (GLUCOPHAGE) 500 mg tablet, take 1 tablet by mouth daily, Disp: 90 tablet, Rfl: 3 potassium chloride (KLOR-CON M 20) 20 MEQ CR tablet, Take 1 tablet (20 mEq total) by mouth in the morning., Disp: 30 tablet, Rfl: 5 Lab Results Office Visit on 09/22/2024 Component Date Value Ref Range Status External Poct Hgb A1C 09/22/2024 8.1 (A) 4 - 7 % Final Other Testing No results found. Return in about 3 months (around 12/23/2024). [facility] Office: [phone] This note is dictated with the use of M*Modal. Please note that this dictation was completed with computer voice recognition software. Quite often unanticipated grammatical, syntax, homophones, and other interpretive errors are inadvertently transcribed by the computer software. Please disregard these errors. Please excuse any errors that have escaped final proofreading. MAURI Herrera 09/22/24 0956 documented in this [facility] [place] History of Present illness Narrative* Chad Somers, DO - 08/18/2024 11:30 AM EDT Images from the original note were not included. Subjective Patient ID: Zina Curtis is a 89 y.o. female. Zina presents today for a new problem. She has had Pain in left hip and buttock for about 3 weeks. It started after working in the garden. It does not radiate anywhere. It is hurting so bad that she has to use a cane to help with ambulation. She has been using Tylenol arthritis with just minimal relief. She does sleep okay at night. It is aggravated by standing and walking. She has to feed the chickens and cats every day and that aggravates it. She also has been having runny nose and sneezing for the last few weeks. She wonders what she can take for that. No fever or other symptoms. She also has some burning with urination but it is only a little bit . She also has some leakage when she tries to stand up from a seated position. Hip Pain The following portions of the patient's history were reviewed and updated as appropriate: allergies, current medications, past family history, past medical history, past social history, past surgicalhistory, problem list, and medication reconciliation was completed including current medication andpost discharge medication. Review of Systems Constitutional: Negative. HENT: Positive for rhinorrhea. Gastrointestinal: Negative. Genitourinary: Positive for dysuria (a little bit). Musculoskeletal: Positive for arthralgias, back pain and gait problem. Objective Physical Exam Vitals reviewed. Constitutional: General: She is not in acute distress. Pulmonary: Effort: Pulmonary effort is normal. Musculoskeletal: Lumbar back: Negative right straight leg raise test and negative left straight leg raise test. Back: Left hip: Tenderness present. No deformity, lacerations, bony tenderness or crepitus. Normal range of motion. Legs: Comments: Pain centered in the buttock area superiorly and laterally. No pain of any significance over the greater trochanter right now with palpation Neurological: Mental Status: She is alert. Gait: Gait abnormal (using a cane). Assessment/Plan Zina was seen today for hip pain. Diagnoses and all orders for this visit: Strain of left hip, initial encounter - [facility] - [place], [place]; Future - X-ray hip left 2-3 views with or without pelvis; Future I suspect a strain of the left hip and buttock muscles. Will check an x-ray. Also start physical therapy since she is in moderate amount of pain. Strain of left buttock, initial encounter - [facility] [place], [place]; Future As above. Dysuria - POCT urinalysis dipstick only UA showed trace WBCs and glucose and all else was negative. Allergic rhinitis, unspecified seasonality, unspecified trigger - loratadine (CLARITIN) 10 mg tablet; Take 1 tablet (10 mg total) by mouth daily as needed for allergies. Will treat with Claritin 10 mg daily Urinary tract infection without hematuria, site unspecified She did have WBCs but all else negative. Low index of suspicion for UTI but she is elderly with symptoms and she is on Farxiga which can increase her risk of an infection so I am going to cover her with Macrobid 100 mg twice a day for 3 days. Other orders - nitrofurantoin, macrocrystal-monohydrate, (MACROBID) 100 mg capsule; Take 1 capsule (100 mg total) by mouth in the morning and 1 capsule (100 mg total) before bedtime. Do all this for 3 days. documented in this encounterSelect [facility] [place]25 History of Present illness Narrative* Chad Somers DO - 05/23/2024 11:00 AM EDT Subjective Patient ID: Zina Curtis is a 88 y.o. female. Zina presents today for recheck for swelling and blood pressure. She does not check her blood pressure at home. She did not get her compression hose yet. She did lose 6 lb since her last visit and feels a lot of it was fluid weight. The following portions of the patient's history were reviewed and updated as appropriate: allergies, current medications, past family history, past medical history, past social history, past surgicalhistory, problem list, and medication reconciliation was completed including current medication andpost discharge medication. Review of Systems Objective Physical Exam Vitals reviewed. Constitutional: General: She is not in acute distress. Appearance: She is obese. She is not ill-appearing. HENT: Head: Normocephalic. Eyes: General: No scleral icterus. Extraocular Movements: Extraocular movements intact. Conjunctiva/sclera: Conjunctivae normal. Cardiovascular: Rate and Rhythm: Normal rate and regular rhythm. Pulses: Dorsalis pedis pulses are 1+ on the right side and 1+ on the left side. Posterior tibial pulses are 1+ on the right side and 1+ on the left side. Heart sounds: Normal heart sounds. No murmur heard. Pulmonary: Effort: Pulmonary effort is normal. No respiratory distress. Breath sounds: Normal breath sounds. No wheezing, rhonchi or rales. Musculoskeletal: Cervical back: Neck supple. Right lower le+ Pitting Edema present. Left lower le+ Pitting Edema present. Feet: Right foot: Protective Sensation: 10 sites tested. 10 sites sensed. Skin integrity: Skin integrity normal. Toenail Condition: Right toenails are normal. Left foot: Protective Sensation: 10 sites tested. 10 sites sensed. Skin integrity: Skin integrity normal. Toenail Condition: Left toenails are normal. Neurological: General: No focal deficit present. Mental Status: She is alert and oriented to person, place, and time. Psychiatric: Mood and Affect: Mood normal. Behavior: Behavior normal. Thought Content: Thought content normal. Judgment: Judgment normal. Assessment/Plan Zina was seen today for diabetes and sinus concerns. 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 Check BMP Hypokalemia - Basic Metabolic Panel; Future Check potassium Overweight She has lost weight. She is now just overweight. She is no longer obese. Much of it was likely due to fluid weight. Diet, exercise and weight loss discussed and encouraged. Pedal edema Encouraged her to get compression hose. Continue furosemide 40 mg daily with hydrochlorothiazide. We will try to cut back on her amlodipine to 5 mg to see if that makes an improvement. Essential (primary) hypertension - amLODIPine (NORVASC) 10 mg tablet; Take 0.5 tablets (5 mg total) by mouth every morning. She does have a blood pressure cuff at home. Encouraged her to monitor blood pressure every day for2 weeks then call in 2 weeks with the readings. We will try to cut back her amlodipine to 5 mg to see if that helps with her swelling while maintaining adequate blood pressure control. documented in this encounterSelect [facility] [place]25 History of Present illness Narrative* Chad Somers DO - 04/11/2024 11:15 AM EST Subjective Patient ID: Zina Curtis is a 88 y.o. female. Zina presents today for diabetic recheck. She has been having a lot of swelling in her legs. She feels that it is worse. Her son did get her compression hose [id number] but they are old andworn out. She would like new pair. She is checking her blood sugars. They are usually less than 100in the morning. It has been in the 60s and then she will eat something. She does not feel anything when it is in the 60s but just eats so she does not drop too low. She is taking the Farxiga. She hasgood sensation on her feet. She tries to eat healthy. Diabetes She presents for her follow-up diabetic visit. She has type 2 diabetes mellitus. There are no diabetic associated symptoms. Symptoms are stable. The following portions of the patient's history were reviewed and updated as appropriate: allergies, current medications, past family history, past medical history, past social history, past surgicalhistory, problem list, and medication reconciliation was completed including current medication andpost discharge medication. Review of Systems Objective Physical Exam Vitals reviewed. Constitutional: General: She is not in acute distress. Appearance: She is obese. She is not ill-appearing. HENT: Head: Normocephalic. Eyes: General: No scleral icterus. Extraocular Movements: Extraocular movements intact. Conjunctiva/sclera: Conjunctivae normal. Cardiovascular: Rate and Rhythm: Normal rate and regular rhythm. Pulses: Dorsalis pedis pulses are 1+ on the right side and 1+ on the left side. Posterior tibial pulses are 1+ on the right side and 1+ on the left side. Heart sounds: Normal heart sounds. No murmur heard. Pulmonary: Effort: Pulmonary effort is normal. No respiratory distress. Breath sounds: Normal breath sounds. No wheezing, rhonchi or rales. Musculoskeletal: Cervical back: Neck supple. Right lower le+ Pitting Edema present. Left lower le+ Pitting Edema present. Feet: Right foot: Protective Sensation: 10 sites tested. 10 sites sensed. Skin integrity: Skin integrity normal. Toenail Condition: Right toenails are normal. Left foot: Protective Sensation: 10 sites tested. 10 sites sensed. Skin integrity: Skin integrity normal. Toenail Condition: Left toenails are normal. Neurological: General: No focal deficit present. Mental Status: She is alert and oriented to person, place, and time. Psychiatric: Mood and Affect: Mood normal. Behavior: Behavior normal. Thought Content: Thought content normal. Judgment: Judgment normal. Assessment/Plan Zina was seen today for diabetes. 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 May need to cut back on her insulin. Her fasting blood sugars in the morning are great. 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 We will try compression hose and increase furosemide to 40 mg daily. May need to see vascular surgeon. I will recheck her back in 6-8 weeks Class 1 obesity due to excess calories with serious comorbidity and body mass index (BMI) of 30.0 to 30.9 in adult She is obese. She would benefit from weight loss. Diet and exercise Hypokalemia Check potassium Other orders - furosemide (LASIX) 40 mg tablet; Take 1 tablet (40 mg total) by mouth daily. documented in this encounterSelect [facility] [place]08-21-2024 History of Present illness Narrative* Chad Somers DO - 10/21/2023 10:00 AM EDT Subjective Patient ID: Zina Curtis is a 88 y.o. female. Zina presents today for diabetic recheck. She is taking her medications. She is tired a lot. Her AM blood sugars are low. She cut back on Lantus to 32 units daily down from40 and her blood sugars are still consistently below 100 and sometimes in the 50s and 60s. She is asymptomatic with these blood sugars other than feeling tired and sometimes hungry. She only checks once a day. She bought a pair of compression hose for the swelling in her legs but they were too small. Diabetes She presents for her follow-up diabetic visit. She has type 2 diabetes mellitus. No MedicAlert identification noted. Her disease course has been stable. Hypoglycemia symptoms include sleepiness (tired). Associated symptoms include fatigue. There are no hypoglycemic complications. Risk factors for coronary artery disease include obesity, sedentary lifestyle, post-menopausal, hypertension and dyslipidemia. Current diabetic treatment includes insulin injections and oral agent (dual therapy). She is following a generally healthy diet. When asked about meal planning, she reported none. She has nothad a previous visit with a dietitian. She participates in exercise intermittently. Her home blood glucose trend is decreasing steadily. Her breakfast blood glucose range is generally 70-90 mg/dl. AnACE inhibitor/angiotensin II receptor mary jane is being taken. Eye exam is current. The following portions of the patient's history were reviewed and updated as appropriate: allergies, current medications, past family history, past medical history, past social history, past surgicalhistory, problem list, and medication reconciliation was completed including current medication andpost discharge medication. Review of Systems Constitutional: Positive for fatigue. Objective Physical Exam Vitals reviewed. Constitutional: General: She is not in acute distress. Appearance: She is obese. She is not ill-appearing. HENT: Head: Normocephalic and atraumatic. Eyes: General: No scleral icterus. Extraocular Movements: Extraocular movements intact. Conjunctiva/sclera: Conjunctivae normal. Cardiovascular: Rate and Rhythm: Normal rate and regular rhythm. Pulses: Normal pulses. Heart sounds: Normal heart sounds. No murmur heard. Pulmonary: Effort: Pulmonary effort is normal. No respiratory distress. Breath sounds: Normal breath sounds. No wheezing, rhonchi or rales. Abdominal: General: Bowel sounds are normal. Palpations: Abdomen is soft. Tenderness: There is no abdominal tenderness. 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 Cervical back: Neck supple. Right lower le+ Edema present. Left lower le+ Edema present. Comments: Nonpitting edema bilateral lower extremities Lymphadenopathy: Cervical: No cervical adenopathy. Neurological: General: No focal deficit present. Mental Status: She is alert and oriented to person, place, and time. Psychiatric: Attention and Perception: Attention normal. Mood and Affect: Mood normal. Speech: Speech normal. Behavior: Behavior normal. Behavior is cooperative. Thought Content: Thought content normal. Cognition and Memory: Cognition and memory normal. Judgment: Judgment normal. Assessment/Plan Zina was seen today for diabetes. 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 Class 1 obesity due to excess calories with serious comorbidity and body mass index (BMI) of 31.0 to 31.9 in adult She is obese. She would benefit from weight loss. Diet and exercise discussed. Hypokalemia Check potassium Localized edema I encouraged her to get a larger pair of compression hose. I can order them or get measurements forform fitted hose if she would like. Mixed hyperlipidemia Check lipids Other orders - insulin glargine (LANTUS SOLOSTAR U-100 INSULIN) 100 unit/mL (3 mL) insulin pen; Inject 32 Units under the skin nightly. documented in this encounterSelect [facility] [place]-11-2024 Miscellaneous Notes* Telephone Encounter - Yulisa Curtis CMA - 09/10/2023 10:26 AM EDT Lm For Patient to call back and schedule her DM apt. documented in this [facility] [place]07-11-2024 Telephone encounter Note* Telephone Encounter - Yulisa Curtis CMA - 09/10/2023 10:26 AM EDT Lm For Patient to call back and schedule her DM apt. [facility] [place]07-10-2024 Miscellaneous Notes* Telephone Encounter - Chad Somers DO - 09/09/2023 2:31 PM EDT Rx sent in. She is due for an appointment next month documented in this [facility] [place]07-10-2024 Telephone encounter Note* Telephone Encounter - Chad Somers DO - 09/09/2023 2:31 PM EDT Rx sent in. She is due for an appointment next month [facility] [place]07-02-2024 History of Present illness Narrative* Chad Somers DO - 09/01/2023 10:50 AM EDT Subjective SUBJECTIVE: Patient ID: Zina Curtis is a 88 y.o. female who presents for a Medicare Annual Wellness exam. HPI The following portions of the patient's history were reviewed and updated as appropriate: allergies, current medications, past family history, past medical history, past social history, past surgicalhistory and problem list. AWV FLOWSHEET : Lifestyle Assessment Do you smoke or use smokeless tobacco?: No If you smoke or use smokeless tobacco, are you ready to quit?: NA Are you exposed to secondhand smoke?: No On average, how many drinks of alcohol do you consume in a week?: None Do you exercise for 30 or more minutes on average at least 3 days a week?: (!) Never Do you have any tooth, denture, or oral problems?: (!) Yes Do you snore or has anyone told you that you snore?: (!) Yes Do you try to eat a balanced diet?: Yes Do you experience leakage of urine, also known as urinary incontinence?: (!) Sometimes Do you have difficulty performing any of these activities? (check all that apply): (!) Walking Do you have difficulty performing any of these activities? (check all that apply): None Fall Risk Fall Risk Assessment Completed?: Yes Have you fallen in the past year?: No Are you worried about falling?: (!) Yes Do you feel unsteady when standing or walking?: (!) Yes Risk Stratification: Moderate Risk Depression Screening Little interest or pleasure in doing things: Not at all Feeling down, depressed, or hopeless: Not at all Trouble falling or staying asleep, or sleeping too much: Not at all Feeling tired or having little energy: Not at all Poor appetite or overeating: Not at all Feeling bad about yourself - or that you are a failure or have let yourself or your family down: Not at all Trouble concentrating on things, such as reading the newspaper or watching television: Not at all Moving or speaking so slowly that other people could have noticed. Or the opposite - being so fidgety or restless that you have been moving around a lot more than usual: Not at all Thoughts that you would be better off , or of hurting yourself in some way: Not at all PEG Scale Safety Assessment Do you have throw rugs on the floor?: (!) Yes Do you feel safe at your home?: Yes Do you feel unsteady when walking?: (!) Yes Are you having difficulty with driving?: No Do you have trouble seeing?: No What assistive device do you use? (check all that apply): (!) Cane Hearing Assessment Do you strain or struggle to hear/understand conversations?: (!) Yes Do you have trouble hearing the television or radio when others do not?: (!) Yes Does your family ever voice concerns about your hearing?: (!) Yes Do you wear hearing aid/s?: No Personal Health During the past 4 weeks, how would you rate your overall health?: Very Good Do you understand how to take all of your medications?: Yes How confident are you that you can control and manage most of your health problems?: Very confident In the past 12 months, how many times have you been hospitalized?: None End of Life Planning Do you have a living will?: Yes Do you have a durable power of digital product manager?: Yes Cognitive Screening Do you have trouble remembering or recalling facts or events?: (!) Yes Do family members or caregivers report that you have difficulty remembering things?: (!) Yes Clock Drawing Test: Normal REVIEW OF SYSTEMS: Review of Systems Objective PHYSICAL EXAMINATION: Vitals: 09/01/23 1103 BP: 124/58 Weight: 75.8 kg (167 lb) Height: 154.9 cm (5' 1 ) Physical Exam Assessment/Plan ASSESSMENT/PLAN Encounter Diagnoses Name Primary? Medicare annual wellness visit, subsequent Yes Screening for depression Health maintenance discussed. Depression screen was negative. At least 3 minute spent administering and discussing. Cognitive evaluation did not reveal any impairment. She has advanced directives in place. Return in about 1 year (around 08/31/2024). [facility] [place] History of Present illness Narrative* Jill Roblero, RIG MANAGER-ACCOUNT EXECUTIVE [employer]ES - 07/06/2023 3:20 PM EDT Subjective Patient ID: Zina Curtis is a 88 y.o. female. The last 3 days she has had persistent pain that starts in the right buttuck and radiates to the right hip and knee It is burning in nature and has been interrupting her sleep She has tried tylenol arthritis but it hasn't helped the last 3 nights She tried cool compresses and this helped a little until the cool sensation Subsides She has been outdoors more walking on uneven surfaces, moving lawn and other activities like that The following portions of the patient's history were reviewed and updated as appropriate: allergies, current medications, past family history, past medical history, past social history, past surgicalhistory, problem list, and medication reconciliation was completed including current medication andpost discharge medication. Review of Systems Constitutional: Positive for activity change. Negative for fatigue. HENT: Positive for congestion. Eyes: Negative. Respiratory: Negative. Cardiovascular: Negative. Gastrointestinal: Negative. Endocrine: Negative. Genitourinary: Negative. Musculoskeletal: Positive for arthralgias, back pain, gait problem and myalgias. Allergic/Immunologic: Negative. Neurological: Positive for dizziness. Hematological: Negative. Psychiatric/Behavioral: Negative. Objective Physical Exam Musculoskeletal: General: Tenderness (Right SI joint radiating to buttock, right knee pedial pulses present) present. Right lower leg: Edema (2+ bilateral pitting edema ankle area) present. Left lower leg: Edema present. Comments: Able to flex to 90 degrees Negative SLR Skin: General: Skin is warm and dry. Capillary Refill: Capillary refill takes less than 2 seconds. Neurological: General: No focal deficit present. Mental Status: She is oriented to person, place, and time. Gait: Gait abnormal (slight limp). Psychiatric: Behavior: Behavior normal. Thought Content: Thought content normal. Judgment: Judgment normal. Assessment/Plan Zina was seen today for leg pain. Diagnoses and all orders for this visit: Sciatica associated with disorder of lumbar spine - X-ray spine lumbar 2 or 3 views; Future Other orders - celecoxib (CeleBREX) 200 mg capsule; Take 1 capsule (200 mg total) by mouth in the morning for 14days. Will get an x-ray of the lumbar spine, add celebrex 200 mg daily for two weeks and get an x-ray of her low back, she should call if not improving PAMELA Alvarez 07/06/23 1716 documented in this encounterKind[facility] HealthcareAirspan Networks [id number] History of Present illness Narrative* Chad Somers, DO - 04/17/2023 10:00 AM EST Subjective Patient ID: Zina Curtis is a 87 y.o. female. Zina presents for rechck of multiple problems. She says she is taking her medication but doesn't take kerendia. She is not sure why. She has no new problems to report. She has not high appointment coming up in April. She did not bring in her blood glucose readings today. She is taking furosemide every day for swelling. Diabetes She presents for her follow-up diabetic visit. She has type 2 diabetes mellitus. Risk factors for coronary artery disease include dyslipidemia, obesity, post- menopausal, sedentary lifestyle, hypertension and diabetes mellitus. Current diabetic treatment includes oral agent (dual therapy) and insulin injections. Her weight is stable. She is following a generally healthy diet. When asked about mealplanning, she reported none. She has not had a previous visit with a dietitian. She rarely participates in exercise. An RON inhibitor/angiotensin II receptor mary jane is being taken. Eye exam is current. The following portions of the patient's history were reviewed and updated as appropriate: allergies, current medications, past family history, past medical history, past social history, past surgicalhistory, problem list, and medication reconciliation was completed including current medication andpost discharge medication. Review of Systems Constitutional: Negative. HENT: Negative. Respiratory: Negative. Cardiovascular: Positive for leg swelling. Gastrointestinal: Negative. Endocrine: Negative. Genitourinary: Negative. Musculoskeletal: Negative. Neurological: Negative. Psychiatric/Behavioral: Negative. Objective Physical Exam Constitutional: General: She is not in acute distress. Appearance: She is overweight. HENT: Head: Normocephalic and atraumatic. Eyes: General: No scleral icterus. Extraocular Movements: Extraocular movements intact. Conjunctiva/sclera: Conjunctivae normal. Cardiovascular: Rate and Rhythm: Normal rate and regular rhythm. Pulses: Normal pulses. Heart sounds: Normal heart sounds. No murmur heard. Pulmonary: Effort: Pulmonary effort is normal. No respiratory distress. Breath sounds: Normal breath sounds. No wheezing, rhonchi or rales. 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 Cervical back: Neck supple. Right lower le+ Edema present. Left lower le+ Edema present. Comments: Nonpitting edema bilateral lower extremities Lymphadenopathy: Cervical: No cervical adenopathy. Neurological: General: No focal deficit present. Mental Status: She is alert and oriented to person, place, and time. Psychiatric: Attention and Perception: Attention normal. Mood and Affect: Mood normal. Speech: Speech normal. Behavior: Behavior normal. Behavior is cooperative. Thought Content: Thought content normal. Cognition and Memory: Cognition and memory normal. Judgment: Judgment normal. Assessment/Plan Zina was seen today for diabetes. 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 Check chronic kidney disease labs. Type 2 diabetes mellitus with stage 3b chronic kidney disease, with long-term current use of insulin ([facility]) - Hemoglobin A1c; Future - finerenone (KERENDIA) 10 mg tablet; Take 10 mg by mouth in the morning. Check A1c. She should be on candy. Risks discussed. She agrees to try again. Class 1 obesity due to excess calories with serious comorbidity and body mass index (BMI) of 30.0 to 30.9 in adult She is obese. She would benefit from weight loss. Diet exercise and weight loss discussed. Patient noted to have elevated BMI and the following intervention(s) were applied: encouragement toexercise and prescribed diet education. Hypokalemia [facility] [place] Instructions* Patient Instructions* Chad Somers DO - 04/17/2023 10:00 AM EST Some Eating Tips That Can Help You Lose Weight Eat only at the table. Avoid eating while watching TV or doing other activities. Eat only when you are hungry - not out of boredom or when you feel bad. Do not skip meals. This will prevent you from overeating at the next meal. Keep plenty of low-calorie snacks available. Fruits and vegetables are good choices. Bring your lunch to school or work. Drink ice water with meals. This helps decrease the appetite. Eat low-fat, low-salt, and low-sugar foods. Avoid fatty foods like fried foods, prepared meats, and fast foods. Eat foods that are high in bulk, such as vegetables, whole grain breads, and cereals. Eat foods with complex sugars such as rice, beans, pasta. Eat slowly. Put your spoon down between bites. You will feel full sooner. Allow yourself an occasional treat. 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 ([facility])- Primary Pedal edema Edema Class 1 obesity due to excess calories with serious comorbidity and body mass index (BMI) of 30.0 to 30.9 in adult Hypokalemia Hypopotassemia documented [facility]* Diagnosis Hyperlipidemia, unspecified Essential (primary) hypertension Unspecified essential hypertension [facility]* Diagnosis Hypokalemia Hypopotassemia Essential (primary) hypertension Unspecified essential hypertension [facility]* Diagnosis Hyperlipidemia, unspecified [facility]* Diagnosis 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 ([facility])- Primary Type 2 diabetes mellitus with stage 3b chronic kidney disease, with long-term current use of insulin ([facility]) Class 1 obesity due to excess calories with serious comorbidity and body mass index (BMI) of 30.0 to 30.9 in adult Hypokalemia Hypopotassemia documented [facility] encounter [facility]* Diagnosis Medicare annual wellness visit, subsequent- Primary Screening for depression Class 1 obesity due to excess calories with serious comorbidity and body mass index (BMI) of 31.0 to 31.9 in adult documented [facility] encounter [facility]* Diagnosis Essential (primary) hypertension Unspecified essential hypertension documented [facility] encounter [facility]* Diagnosis Localized edema Edema [facility]* Diagnosis 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 ([facility]) Type 2 diabetes mellitus with diabetic chronic kidney disease ([facility]) documented [facility]* Diagnosis 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 ([facility])- Primary Class 1 obesity due to excess calories with serious comorbidity and body mass index (BMI) of 31.0 to 31.9 in adult Hypokalemia Hypopotassemia Localized edema Edema Mixed hyperlipidemia [facility]* Diagnosis Type 2 diabetes mellitus with diabetic chronic kidney disease ([facility]) documented [facility] encounter [facility]* Diagnosis Type 2 diabetes mellitus with diabetic chronic kidney disease ([facility]) documented [facility] encounter [facility]* Diagnosis Localized edema Edema documented [facility]* Diagnosis Hypokalemia Hypopotassemia documented [facility]* Diagnosis 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 ([facility])- Primary Hypokalemia Hypopotassemia Overweight Pedal edema Edema Essential (primary) hypertension Unspecified essential hypertension [facility] Diagnosis Strain of left hip, initial encounter- Primary Strain of left buttock, initial encounter Dysuria Allergic rhinitis, unspecified seasonality, unspecified trigger Urinary tract infection without hematuria, site unspecified [facility] Diagnosis Type 2 diabetes mellitus with stage 3b chronic kidney disease, with long-term current use of insulin ([facility])- Primary Essential hypertension Unspecified essential hypertension [facility] Diagnosis 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 ([facility]) Type 2 diabetes mellitus with diabetic chronic kidney disease ([facility]) [facility] Diagnosis 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 ([facility])- Primary Mixed hyperlipidemia Strain of left hip, initial encounter Need for immunization against influenza Need for prophylactic vaccination and inoculation against influenza documented [facility] filedocumented in this encounter [facility] on filedocumented in this encounter [facility] on filedocumented in this encounter [facility] on filedocumented in this encounter [facility]Not on filedocumented in this encounter [facility] on filedocumented in this encounter [facility]Not on filedocumented in this encounter [facility]Not on filedocumented in this encounter [facility]Not on filedocumented in this encounter [facility] on filedocumented in [facility] encounter [facility] Summary Purpose Family History No Family History Records FoundNo Family History Records FoundNo Family History Records FoundNo Family History Records Found Advance Directives No Advanced Directives Records FoundNo Advanced Directives Records FoundNo Advanced Directives Records FoundNo Advanced Directives Records Found Reason for Referral SpecialtyDiagnoses / ProceduresReferred By ContactReferred To Contact Diagnoses Type 2 diabetes mellitus with stage 3b chronic kidney disease, with long-term current use of insulin ([facility]) Chad Somers, DO [address] [place] [address] Referral IDStatusReasonStart DateExpiration DateVisits RequestedVisits [id number] Additional Source Comments INFORMATION SOURCE (unrecogn ized section and content) DATE CREATED AUTHOR 03/17/2021 [facility] DATE CREATED AUTHOR AUTHOR'S ORGANIZ ATION 01/22/2022 [facility] DATE CREATED AUTHOR AUTHOR'S ORGANIZ ATION 05/24/2024 [facility] DATE CREATED AUTHOR AUTHOR'S ORGANIZ ATION 12/25/2024 [facility] Reason for Visit (unrecogniz ed section and content) ReasonCommentsMed RefillReasonCommentsLeg PainRightReasonCommentsDiabetesRight foot painReasonCommentsDiabetesReasonCommentsmawReasonCommentsDiabetesPt would like a new meterReasonOnset DateCommentsMed [id number] Diabetessinus concernsReasonCommentsHip PainLt Buttocks area for a long time ReasonCommentsDiabetesReasonOnset DateCommentsMed [id number]/24/2024ReasonComments 3 month Care Teams (unrecognized sec tion and content) Team MemberRelationshipSpecialtyStart DateEnd Date Chad Somers DO [address] [place] [address] PCP - GeneralFamily Medicine10/27/17 Cristy Monroe [facility] Nurse - PhndkeLolk99/10/24Team MemberRelationshipSpecialtyStart DateEnd Date Chad Somers DO [address] [place] [address] PCP - GeneralFamily Medicine10/27/17Team MemberRelationshipSpecialtyStart DateEnd Date Chad Somers DO [address] [place] [address] [address] PCP - GeneralFamily Medicine10/27/17Team MemberRelationshipSpecialtyStart DateEnd Date Chad Somers DO [address] [place] [address] PCP - GeneralFamily Medicine10/27/17 Kalina Benjamin 04/07/24Team MemberRelationshipSpecialtyStart DateEnd Date Chad Somers DO [address] [place] [address] PCP - GeneralFamily Medicine10/27/17 Kalina Benjamin 04/07/24Team MemberRelationshipSpecialtyStart DateEnd Date Chad Somers DO [address] [place] [address] PCP - GeneralFamily Medicine10/27/17Team MemberRelationshipSpecialtyStart DateEnd Date Chad Somers DO [address], [place] [address] PCP - GeneralFamily Medicine10/27/17Team MemberRelationshipSpecialtyStart DateEnd Date Chad Somers DO [address], [place] [address] PCP - GeneralFamily Medicine10/27/17 Maricel Downey [facility] Nurse - SignalLamp6/Team MemberRelationshipSpecialtyStart DateEnd Date Chad Somers, [address] [place] [address] PCP - GeneralFamily Medicine10/27/17 Maricel Downey [facility] Nurse - SignalLamp6/Team MemberRelationshipSpecialtyStart DateEnd Date Chad Somers DO [address], [place] [address] PCP - Generalmily Medicine10/27/17Team MemberRelationshipSpecialtyStart DateEnd Date Chad Somers DO [address], [place] [address] PCP - GeneralFamily Medicine10/27/17 Maricel Downey [facility] Nurse - SignalLamp6/Team MemberRelationshipSpecialtyStart DateEnd Date Chad Somers DO [address], [place] [address] PCP - GeneralFamily Medicine10/27/17 Maricel Downey [facility] Nurse - SignalLamp6/Team MemberRelationshipSpecialtyStart DateEnd Date Chad Somers DO [address], [place] [address] PCP - GeneralFamily Medicine10/27/17 Maricel Downey [facility] Nurse - SignalLamp6/Team MemberRelationshipSpecialtyStart DateEnd Date Chad Somers Charanjit [address], [place] [address] PCP - GeneralFamily Medicine10/27/17 Kalina Alasandro 04/07/24Team MemberRelationshipSpecialtyStart DateEnd Date Chad Somers DO [address], [place] [address] PCP - GeneralFamily Medicine10/27/17 Kalina Alasandro 04/07/24Team MemberRelationshipSpecialtyStart DateEnd Date Chad Somers DO [address], [place] [address] PCP - GeneralFamily Medicine10/27/17 Kalina Alasandro 04/07/24Team MemberRelationshipSpecialtyStart DateEnd Date Chad Somers DO [address], [place] [address] PCP - GeneralFamily Medicine10/27/17 Kalina Alasandro 04/07/24Team MemberRelationshipSpecialtyStart DateEnd Date Chad Somers DO [address], [place] [address] PCP - GeneralFamily Medicine10/27/17 Kalina Alasandro 04/07/24Team MemberRelationshipSpecialtyStart DateEnd Date Chad Somers DO [address], [place] [address] PCP - [facility]10/27/17 [facility] 04/07/24Team MemberRelationshipSpecialtyStart DateEnd Date Chad Somers DO [address] [place] [address] PCP - [facility]10/27/[address] [facility] 04/07/24 FOR RECORDS PERTAINING TO PATIENTS WHO ARE OR HAVE BEEN ENROLLED IN A CHEMICAL DEPENDENCY/SUBSTANCEABUSE PROGRAM, SOME INFORMATION MAY BE OMITTED. This clinical summary was aggregated from multiple sources. Caution should be exercised in using it in the provision of clinical care. This summary normalizes information from multiple sources, and as a consequence, information in this document may materially change the coding, format and clinical context of patient data. In addition, data may be omitted in some cases. CLINICAL DECISIONS SHOULD BE BASED ON THE PRIMARY CLINICAL RECORDS. [facility]. provides no warranty or guarantee of the accuracy or completeness of information in this document.
== END 2024-12-29 12:13 | disposition home or self-care (01) ==
LOC: RAD 12:15
PROVIDERS: PCP Family Medicine; Visit Provider Family Medicine
DX: S76.012A Strain of muscle, fascia and tendon of left hip, initial encounter (principal)
CPT/HCPCS: 73502